=== PATIENT | female | born 1995 | race Caucasian/White ===

== ENCOUNTER 2016-10-24 22:00 | Inpatient (IN) | payer OTHER ==
[2016-10-24] MEDS ORDERED: RINGERS SOLUTION,LACTATED 1,000 ML IV PRN (22:27)
[2016-10-24] MEDS ORDERED: MISOPROSTOL 0.2 MG TABLET ONE (22:35)
[2016-10-24] MEDS ORDERED: LIDOCAINE 1% INJ-PF (10 MG/ML) 30 ML SDV ONE (22:36)
[2016-10-24] MEDS ORDERED: EPHEDRINE SULFATE INJ 50 MG/1 ML AMPULE ONE (22:36)
[2016-10-24] MEDS ORDERED: FENTANYL CITRATE INJ/PF 100 MCG/2 ML AMPUL ONE (22:36)
[2016-10-24] MEDS ORDERED: OXYTOCIN/NORMAL SALINE 20 UNIT/1,000 ML RTUINJ ONE (22:36)
[2016-10-24] MEDS ORDERED: BUPIVACAINE HCL 0.25 % INJ/PF (2.5 MG/1 ML) 30 ML VIAL ONE (22:37)
[2016-10-24] MEDS ORDERED: FENTANYL/BUPIVACAINE/NS/PF 0 MCG/0 ML RTUINJ EPI ONE (22:37)
[2016-10-24] MEDS ORDERED: PHENYLEPHRINE HCL INJ/PF 10 MG/1 ML SDV ONE (22:37)
[2016-10-24 22:41] LABS: ABSOLUTE BASOPHILS # (AUTO) 0.1 10^3/uL (0.0-0.2); ABSOLUTE LYMPHOCYTES (AUTO) 2.4 10^3/uL (0.5-4.7); ABSOLUTE MONOCYTES (AUTO) 0.9 10^3/uL (0.1-1.4); ABSOLUTE NEUT (AUTO) 11.5 10^3/uL (1.7-8.2); BASOPHILS % (AUTO) 0.6 % (0-2); EOSINOPHILS % (AUTO) 0.1 % (0-6); HEMATOCRIT 36.2 % (36.0-47.0); HEMOGLOBIN 12.5 g/dL (12.0-15.5); HGB HCT DIFFERENCE 1.3; LYMPHOCYTES % (AUTO) 16.4 % (13-45); MEAN CORPUSCULAR HEMOGLOBIN 31.1 pg (27.0-33.4); MEAN CORPUSCULAR HGB CONC 34.5 g/dL (32.0-36.0); MEAN CORPUSCULAR VOLUME 90 fl (80-97); MONOCYTES % (AUTO) 6.2 % (3-13); RED BLOOD COUNT 4.02 10^6/uL (3.72-5.28); RED CELL DISTRIBUTION WIDTH 12.9 % (11.5-14.0); SEGMENTED NEUTROPHILS % (AUTO) 76.7 % (42-78); WHITE BLOOD COUNT 14.9 10^3/uL (4.0-10.5)
[2016-10-24] MEDS ORDERED: ACETAMINOPHEN WITH CODEINE #3 TABLET PO PRN ×2 (23:19)
[2016-10-24] MEDS ORDERED: DIBUCAINE 1% OINTMENT 28 GM TP PRN (23:19)
[2016-10-24] MEDS ORDERED: BENZOCAINE/MENTHOL AEROSOL SPRAY 56 ML TOP PRN (23:19)
[2016-10-24] MEDS ORDERED: OXYTOCIN/NORMAL SALINE 1,000 ML IV PRN (23:19)
[2016-10-24] MEDS ORDERED: DIPH/PERTUSS(ACELL)/TETANUS VAC/PF 0.5 ML SYR (>=10YO) IM PRN (23:19)
[2016-10-24] MEDS ORDERED: ZOLPIDEM TARTRATE 5 MG TABLET PO PRN (23:19)
[2016-10-24] MEDS ORDERED: MEASLES,MUMPS&RUBELLA VACC/PF 0.5 ML VIAL SUBCUT PRN (23:19)
[2016-10-24] MEDS ORDERED: IBUPROFEN 800 MG TABLET ONE (23:34)
[2016-10-24 23:41] LABS: APPEARANCE,URINE CLOUDY; BILIRUBIN,URINE NEGATIVE (NEGATIVE); GLUCOSE, URINE NEGATIVE (NEGATIVE); KETONES,URINE 80 mg/dL (NEGATIVE); LEUKOCYTE ESTERASE,URINE SMALL (NEGATIVE); NITRITE,URINE NEGATIVE (NEGATIVE); PROTEIN,URINE NEGATIVE (NEGATIVE); URINE SPECIFIC GRAVITY 1.011; UROBILINOGEN,URINE NEGATIVE mg/dL (<2.0)
[2016-10-24] MEDS ORDERED: OXYTOCIN 10 UNIT/ML VIAL ONE (23:45)
--- NOTE | 2016-10-24 23:51 | Delivery Summary ---
Del Sum A-C Datetime Report Generated by CPN: 10/24/2016 23:50 ADMISSION DATA Chief Complaint: Uterine Contractions Indication for Induction: Not Applicable Admission Impression: Term, Intrauterine ; Active Labor Admit Provider Comments: 21yo at 40+5ega presents in active labor. GBS negative per chart. c/b Hypothyroidism on Synthroid 50mcg. GERD tx in with Zantac. Pelvis proven with . Anticipate as pt has rapidly changed her cervical dilation to 7-8cm. Will attempt to get pt epidural. DELIVERY PERSONNEL Delivery Doctor:: Mariposa Stringer MD Labor and Delivery Nurse:: Geraldine Pedroza RNship purser Nurse:: Prerna Day RN Nursery Nurse:: Karissa Matson RN Nursery Nurse:: Patricia Calix RN MATERNAL INFORMATION Delivery Anesthesia: Local Medications After Delivery: Pitocin Drip 20 Units/1000ml NSS; Other-Please Comment Meds After Delivery Comment: 1000mcg miso; pitocin with 40 units in 1000 NS Estimated Blood Loss (ml): 250 Maternal Complications: None Provider Comments: VFI delivered in JESSICA presentation with tight nuchal cord that needed surgical reduction. Shoulders and body delivered w/o difficulty. Placenta delivered spontaneously intact. Mild intermittent atony and crudee performed with small less than 1-2cm piece of membrane removed with good return to FF. Misoprostol 1000mcg given per rectum. Good hemostasis after repair. Mother and baby stable upon provider leaving the room. Weight 7#7oz, Apgars 8/9 LABOR SUMMARY EDC: 10/19/2016 00:00 No. Babies in Womb: 1 Labor Anesthesia: None LABOR INFORMATION Reason for Induction: Not Applicable Onset of Labor: 10/24/2016 19:30 Complete Dilatation: 10/24/2016 22:53 Group B Beta Strep: negative Steroids Given: None Reason Steroids Not Administered: Not Applicable MEMBRANES Membranes Rupture Method: Spontaneous Rupture of Membranes: 10/24/2016 22:55 Length of Rupture (hr): 0.05 Amniotic Fluid Color: Heavy Meconium Amniotic Fluid Amount: Moderate Amniotic Fluid Odor: Normal STAGES OF LABOR Stage 1 hr: 3 Stage 1 min: 23 Stage 2 hr: 0 Stage 2 min: 5 Stage 3 hr: 0 Stage 3 min: 5 Total Time in Labor hr: 3 Total Time in Labor min: 33 VAGINAL DELIVERY Episiotomy: None Laceration Extension: First Degree Laceration Type: Perineal Laceration Repair: Yes Laceration Repair Note: 1st degree ML laceration repaired in usual fashion with good hemostasis. 8ml of 1% lidocaine used for local anesthetic. Sponge Count Correct: Yes Sharps Count Correct: Yes BABY A INFORMATION Infant Delivery Date/Time: 10/24/2016 22:58 Method of Delivery: Vaginal Born in Route : No : N/A Forceps: N/A Vacuum Extraction: N/A Shoulder Dystocia : No PRESENTATION/POSITION BABY A Presentation: Cephalic Cephalic Presentation: Vertex Vertex Position: Left Occipital Anterior Breech Presentation: N/A PLACENTA INFORMATION BABY A Placenta Delivery Time : 10/24/2016 23:03 Placenta Method of Delivery: Spontaneous Placenta Status: Delivered SCORES BABY A Heart Rate 1 min: >100 bpm Resp Effort 1 min: Good Cry Reflex Irritability 1 min: Cough or Sneeze or Pulls Away Muscle Tone 1 min: Active Motion Color 1 min: Blue/Pale Resuscitation Effort 1 min: Tactile Stimulation SCORE 1 MIN: 8 Heart Rate 5 min: >100 bpm Resp Effort 5 min: Good Cry Reflex Irritability 5 min: Cough or Sneeze or Pulls Away Muscle Tone 5 min: Active Motion Color 5 min: Body Lowes, Extremities Blue SCORE 5 MIN: 9 INFORMATION BABY A Gestational Age at Delivery: 40.5 Gestational Status: Full Term- 39- 40.6 Weeks Infant Outcome : Liveborn Condition : Stable Sex: Female IDENTIFICATION BABY A Verification Date/Time: 10/24/2016 23:15 ID Band Number: [id number] Mother's Name Verified: Yes RN Verifying : R Shay, RNC Additional Verifying Personnel: D Sarita, US WEIGHT/LENGTH BABY A Infant Birthweight (gm): 3370 Weight (lb): 7 Weight (oz): 7 Infant Length (in): 19.75 Infant Length (cm): 50.17 CORD INFORMATION BABY A No. Cord Vessels: 3 Nuchal Cord : Around Neck x1, Tight Cord Blood Taken: Yes-For Storage (Mom's Blood type +) Suction: Mouth; Nose (Annotations: Data stored by WILY on behalf of user) ASSESSMENT BABY A Skin to Skin: No SIGNATURES Signature: with User ID: [email or web address]
[2016-10-25 00:07] LABS: URINE BARBITURATES SCREEN NEGATIVE; URINE METHADONE SCREEN NEGATIVE; URINE PHENCYCLIDINE SCREEN NEGATIVE
--- NOTE | 2016-10-25 01:53 | Admission Physical ---
Datetime Report Generated by CPN: 10/25/2016 01:52 CURRENT ADMISSION Chief Complaint: Uterine Contractions Indication for Induction: Not Applicable Admit Plan: Admit to Unit; Initiate Labor Protocol ALLERGIES Medication Allergies: No Medication Allergies: No Known Drug Allergies (10/24/2016) Latex: No Latex Allergies Food Allergies: none Environmental Allergies: none OBSTETRICAL HISTORY EDC: 10/19/2016 00:00 : 3 Para: 1 Term: 1 : 0 SAB: 1 IAB: 0 Livin Gestational Diabetes: No Rh Sensitization: No Incompetent Cervix: No SYL: No Infertility: No ART Treatment: No Uterine Anomaly: No IUGR: No Hx Previous C/S: No Macrosomia: No Hx Loss/Stillborn: No PIH: No Hx : No Placenta Previa/Abruption: No Depression/PP Depression: No PTL/PROM: No Post Hemorrhage: No Current Procedures: Ultrasound; NST Obstetrical History Comments: G1: 2013 G2: Female 2014 7 pounds 6 ounces G3: Current SEE RECORDS Alcohol: No Marijuana : No Cocaine: No Other Illicit Drugs: No Cigarettes: Former Smoker. [id number] MEDICAL HISTORY Diabetes: No Blood Transfusion: No Pulmonary Disease (Asthma, TB): No Breast Disease: No Hypertension: No Maintenance Assistant Surgery: No Heart Disease: No Hosp/Surgery: Yes Autoimmune Disorder: No Anesthetic Complications: No Kidney Disease: No Abnormal Pap Smear: No Neuro/Epilepsy: No Psychiatric Disorders: No Other Medical Diseases: No Hepatitis/Liver Disease: No Significant Family History: No Varicosities/Phlebitis: No Trauma/Violence : No Thyroid Dysfunction: Yes Medical History Comments: On synthroid hypothyroidism, childbirth INFECTIOUS HISTORY Gonorrhea: No Genital Herpes: No Chlamydia: No Tuberculosis: No Syphilis: No Hepatitis: No HIV/AIDS Exposure: No Rash or Viral Illness: No HPV: No PHYSICAL EXAM General: Normal HEENT: Normal Neurologic: Normal Thyroid: Normal Heart: Normal Lungs: Normal Breast: Deferred Back: Normal Abdomen: Normal Genitourinary Exam: Normal Extremities: Normal DTRs: Normal Pelvic Type: Adequate Physical Exam Comments: Exam per RN normal Vital Signs: Reviewed; Within Normal Limits VAGINAL EXAM Dilatation: 5 Effacement: 80 Station: -1 FETUS A EGA: 40.5 Monitoring: External US FHR- Baseline: 130 Variability: Moderate 6-25bpm Accelerations: 15X15 Decelerations: None Estimated Weight (gm): 8 Presentation: Vertex Admit Comment: 21yo at 40+5ega presents in active labor. GBS negative per chart. c/b Hypothyroidism on Synthroid 50mcg. GERD tx in with Zantac. Pelvis proven with . Anticipate as pt has rapidly changed her cervical dilation to 7-8cm. Will attempt to get pt epidural. PLANS FOR LABOR AND DELIVERY Labor and Delivery: None Pain Management: Epidural Feeding Preference: Breast Benefit of Breast Feed Discussed: Yes Circumcision: N/A INFORMED CONSENT Informed Consent Obtained: Vaginal Delivery; Risks, Benefits and Alternatives Discussed Signature: with User ID: [email or web address]
--- NOTE | 2016-10-25 04:47 | L&D Flow Sheet ---
LD Flowsheet Datetime Report Generated by CPN: 10/25/2016 04:45 Datetime: 10/25/2016 00:56 Vital Signs Stage of : Recovery (Geraldine Pedroza, RN) Respirations: 18 (Geraldine Pedroza, RN) Pain Pain Scale: 1 (Geraldine Pedroza, RN) Pain Presence: Constant (Geraldine Pedroza, RN) Pain Type: Ache (Geraldine Pedroza, RN) Pain Location: Perineum (Geraldine Pedroza, RN) Pain Goal: 1 (Geraldine Pedroza, RN) Pain Assessment Comments: (Geraldine Pedroza, RN) Datetime: 10/25/2016 00:45 Vital Signs Stage of : Recovery (Geraldine Pedroza, RN) Datetime: 10/25/2016 00:25 Vital Signs Stage of : Recovery (Geraldine Pedroza, RN) Datetime: 10/25/2016 00:11 NBP Sys/Rosalee/Mean (mmHg): 127 (QS system process) : 72 (QS system process) : 94 (QS system process) Pulse: 54 (QS system process) Datetime: 10/25/2016 00:10 Vital Signs Stage of : Recovery (Geraldine Pedroza, RN) Respirations: 18 (Geraldine Pedroza, RN) Temperature (F): 97.9 (Geraldine Pedroza, RN) Temperature (C): 36.6 (QS system process) Pain Pain Scale: 1 (Geraldine Pedroza, RN) Pain Presence: Constant (Geraldine Pedroza, RN) Pain Type: Ache (Geraldine Pedroza, RN) Pain Location: Perineum (Geraldine Pedroza, RN) Pain Goal: 1 (Geraldine Pedroza, RN) Pain Relief Measures: Comfort Measures (Geraldine Pedroza, RN) Datetime: 10/24/2016 23:57 NBP Sys/Rosalee/Mean (mmHg): 120 (QS system process) : 68 (QS system process) : 88 (QS system process) Pulse: 68 (QS system process) Datetime: 10/24/2016 23:55 Vital Signs Stage of : Recovery (Geraldine Pedroza, RN) Respirations: 18 (Geraldine Pedroza, RN) Datetime: 10/24/2016 23:40 Vital Signs Stage of : Recovery (Geralidne Pedroza, RN) Pain Pain Scale: 1 (Geraldine Pedroza, RN) Pain Presence: Constant (Geraldine Pedroza, RN) Pain Type: Ache (Geraldine Pedroza, RN) Pain Location: Perineum (Geraldine Pedroza, RN) Datetime: 10/24/2016 23:25 Vital Signs Stage of : Recovery (Geraldine Pedroza, RN) Respirations: 18 (Geraldine Pedroza, RN) Pain Pain Scale: 2 (Geraldine Pedroza, RN) Pain Presence: Constant (Geraldine Pedroza, RN) Pain Type: Pressure; Ache (Geraldine Pedroza, RN) Pain Location: Perineum (Geraldine Pedroza, RN) Pain Goal: 1 (Geraldine Pedroza, RN) Pain Relief Measures: Comfort Measures (Geraldine Pedroza, RN) Datetime: 10/24/2016 23:23 NBP Sys/Rosalee/Mean (mmHg): 126 (QS system process) : 70 (QS system process) : 91 (QS system process) Pulse: 80 (QS system process) Datetime: 10/24/2016 23:12 Vital Signs Stage of : Recovery (Geraldine Pedroza, RN) Datetime: 10/24/2016 23:10 Vital Signs Stage of : Recovery (Geraldine Pedroza, RN) Datetime: 10/24/2016 23:03 Stage 2 Stage 2 Comments: delivered by Dr Stringer (Geraldine Pedroza, RN) Datetime: 10/24/2016 22:58 Stage 2 Stage 2 Comments: delivered by Dr Stringer (Geraldine Pedroza, RN) Datetime: 10/24/2016 22:57 Vital Signs Stage of : Labor (Geraldine Pedroza, RN) Respirations: 18 (Geraldine Pedroza, RN) Uterine Activity Monitor Mode: External; Palpation (Geraldine Pedroza, RN) Frequency (min): 2-3 (Geraldine Pedroza, RN) Quality: Moderate to Strong (Geraldine Pedroza, RN) Duration (sec): 60-110 (Geraldine Pedroza, RN) Pattern: Normal: <= 5 Contractions in 10 Minutes (Geraldine Pedroza, RN) Resting Tone (Palpate): Relaxed (Geraldine Pedroza, RN) Assessment A Monitor Mode: External US (Geraldine Pedroza, RN) Monitor Interventions for FHR: Ultrasound Adjusted (Geraldine Pedroza, RN) FHR Baseline Rate : 130 (Geraldine Pedroza, RN) FHR Baseline Changes: No Baseline Change (Geraldine Pedroza, RN) Variability: Moderate 6-25 bpm (Geraldine Pedroza, RN) Accelerations: 15X15 (Geraldine Pedroza, RN) Decelerations: Variable (Geraldine Pedroza, RN) Pain Pain Scale: 5 (Geraldine Pedroza, RN) Pain Presence: Intermittent (Geraldine Pedroza, RN) Pain Type: Contraction (Geraldine Pedroza, RN) Pain Location: Abdomen; Perineum (Geraldine Pedroza, RN) Pain Goal: 1 (Geraldine Pedroza, RN) Pain Relief Measures: Comfort Measures (Geraldine Pedroza, RN) Pain Coping: Talking Through Contractions (Geraldine Pedroza, RN) Comfort Measures: Breathing/Relaxation; Family Support (Geraldine Pedroza, RN) Communication Communication: RN at Bedside; RN Reviewed Strip (Geraldine Pedroza, RN) LaborFlag: Labor (QS system process) Datetime: 10/24/2016 22:56 Communication Comments: Nursery called for delivery (Nhi Vitrano, RN) Datetime: 10/24/2016 22:54 Vaginal Exam Dilatation (cm): 10.0 (Prerna Shay, RN) Effacement (%): 100 (Prerna Shay, RN) Station: 2 (Prerna Shay, RN) Exam by: B Pedroza, RN (Prerna Shay, RN) Communication Communication: Provider at Bedside (Prerna Shay, RN) Communication Comments: Dr Hoffmanat bedside for delivery (Prerna Shay, RN) Datetime: 10/24/2016 22:50 Vaginal Exam Dilatation (cm): 9.0 (Prerna Shay, RN) Station: -1 (Prerna Shay, RN) Exam by: B Pedroza, RN (Prerna Shay, RN) Datetime: 10/24/2016 22:48 Pulse: 143 (QS system process) SpO2 (%): 81 (QS system process) LaborFlag: Labor (QS system process) Datetime: 10/24/2016 22:42 Procedures: Consents Signed (Crystal Teresa, RN) Datetime: 10/24/2016 22:39 Vaginal Exam Dilatation (cm): 7.5 (Geraldine Pedroza, RN) Effacement (%): 100 (Geraldine Pedroza, RN) Station: -1 (Geraldine Pedroza, RN) Exam by: Laura Pedroza, RN (Geraldine Pedroza, RN) Vaginal Bleeding: None (Geraldine Pedroza, RN) Cervix, Consistency: Soft (Geraldine Pedroza, RN) Cervix, Position: Midposition (Geraldine Pedroza, RN) Datetime: 10/24/2016 22:31 Patient Care IV/Blood Work: Labs Drawn (Geraldine Pedroza, RN) Datetime: 10/24/2016 22:30 Vital Signs Stage of : Labor (Geraldine Pedroza, RN) Uterine Activity Monitor Mode: External; Palpation (Geraldine Pedroza, RN) Frequency (min): 1.5-2 (Geraldine Pedroza, RN) Frequency (min): per patient every 1-2 minutes (Geraldine Pedroza, RN) Quality: Moderate to Strong (Geraldine Pedroza, RN) Duration (sec): 60-80 (Geraldine Pedroza, RN) Pattern: Normal: <= 5 Contractions in 10 Minutes (Geraldine Pedroza, RN) Resting Tone (Palpate): Relaxed (Geraldine Pedroza, RN) Assessment A Monitor Mode: External US (Geraldine Pedroza, RN) FHR Baseline Rate : 130 (Geraldine Pedroza, RN) FHR Baseline Changes: No Baseline Change (Geraldine Pedroza, RN) Variability: Moderate 6-25 bpm (Geraldine Pedroza, RN) Accelerations: 15X15 (Geraldine Pedroza, RN) Decelerations: None (Geraldine Pedroza, RN) Pain Pain Scale: 5 (Geraldine Pedroza, RN) Pain Presence: Intermittent (Geraldine Pedroza, RN) Pain Type: Contraction (Geraldine Pedroza, RN) Pain Location: Abdomen; Back (Geraldine Pedroza, RN) Pain Location: Abdomen; Perineum (Geraldine Pedroza, RN) Pain Goal: 1 (Geraldine Pedroza, RN) Pain Relief Measures: Comfort Measures (Geraldine Pedroza, RN) Pain Coping: Requesting Pain Medication or Epidural (Geraldine Pedroza, RN) Pain Coping: Talking Through Contractions; Breathing Through Contractions (Geraldine Pedroza, RN) Vaginal Bleeding: None (Geraldine Pedroza, RN) Maternal Assessment Level of Consciousness: Fully Conscious (Geraldine Pedroza, RN) DTR's/Clonus: DTRs 2+; No Clonus (Geraldine Pedroza, RN) Headache: Denies (Geraldine Pedroza, RN) Breath Sounds, Left: Clear and Equal (Geraldine Pedroza, RN) Breath Sounds, Right: Clear and Equal (Geraldine Pedroza, RN) Nausea/Vomiting: Denies (Geraldine Pedroza, RN) RUQ Epigastric Pain: Denies (Geraldine Pedroza, RN) Comfort Measures: Breathing/Relaxation; Family Support (Geraldine Pedroza, RN) Communication Communication: RN at Bedside; RN Reviewed Strip (Geraldine Pedroza, RN) LaborFlag: Labor (QS system process) Datetime: 10/24/2016:28 Patient Care IV/Blood Work: IV Started; IV Bolus Started (Geraldine Pedroza, RN) Patient Care Comments: 18 gauge placed in L wrist on first attempt by O Danny, RN (Geraldine Pedroza, RN) Datetime: 10/24/2016 22:19 Quality: Moderate to Strong (Geraldine Pedroza, RN) Vaginal Exam Dilatation (cm): 5.0 (Geraldine Pedroza, RN) Effacement (%): 80 (Geraldine Pedroza, RN) Station: -1 (Geraldine Pedroza RN) Exam by: Laura Pedroza RN (Geraldine Pedroza RN) Vaginal Bleeding: None (Geraldine Pedroza RN) Cervix, Consistency: Soft (Geraldine Pedroza RN) Cervix, Position: Midposition (Geraldine Pedroza RN) Datetime: 10/24/2016 22:06 Membranes Ruptured Date/Time: 10/24/2016 22:55 (Prerna Day RN) Membranes Rupture Method: Artificial (Geraldine Pedroza RN) Amniotic Fluid Color: Heavy Meconium (Prerna Day RN) Amniotic Fluid Amount: Moderate (Prerna Day RN) Amniotic Fluid Odor: Normal (Preran Day RN)
--- NOTE | 2016-10-25 04:47 | L&D Discharge Summary ---
OB Discharge Summary Datetime Report Generated by CPN: 10/25/2016 04:45 DISCHARGE DIAGNOSIS Gestation: 40.5 Number of Babies in Womb: 1 Parity: 1
--- NOTE | 2016-10-25 04:47 | L&D Current Admission ---
Current Admit Datetime Report Generated by CPN: 10/25/2016 04:45 ADMISSION INFORMATION Current Admit Date/Time: 10/24/2016 22:44 (10/24/2016 22:44:Geraldine Pedroza RN) Reason for Admission: Onset of Labor (10/24/2016 22:44:Geraldine Pedroza RN) Chief Complaint: Contractions (10/24/2016 22:30:Geraldine Pedroza RN) EGA per Dates: 40.5 (10/24/2016 22:44:QS system process) Method of Arrival: Wheelchair (10/24/2016 22:44:Geraldine Pedroza RN) Reason for Induction: Not Applicable (10/24/2016 22:44:Geraldine Pedroza RN) Records Available: Yes (10/24/2016 22:44:Geraldine Pedroza RN) General Admission Information: Reviewed (10/24/2016 22:44:Geraldine Pedroza RN) BELONGINGS/ADVANCED DIRECTIVES Comments Regarding Disposition: see belongings consent form (10/24/2016 22:44:Geraldine Pedroza RN) Advance Direct for Healthcare: No, and Wants No Information (10/24/2016 22:44:Geraldine Pedroza RN) Durable Power of Cap Sizer: No (10/24/2016 22:44:Geraldine Pedroza RN) Living Will: No (10/24/2016 22:44:Geraldine Pedroza RN) Organ Donor: Yes (10/24/2016 22:44:Geraldine Pedroza RN) Pt Rights Information Given: Yes (10/24/2016 22:44:Geraldine Pedroza RN) Pt Understands Pt Rights: Yes (10/24/2016 22:44:Geraldine Pedroza RN) LEARNING ASSESSMENT Knowledge Level: Understands L_D Process; Understands Care Activities; Understands Diagnosis (10/24/2016 22:44:Geraldine Pedroza RN) Barriers to Learning: None (10/24/2016 22:44:Geraldine Pedroza RN) Learning Readiness: Motivated (10/24/2016 22:44:Geraldine Pedroza RN) Learns Best By: 1 to 1 Instruction; Reading; Videos; Demonstration (10/24/2016 22:44:Geraldine Pedroza RN) Learning Needs: Labor and Delivery Process; Pain Management; Symptoms to Report; Treatment Plan; Medication; Diagnosis; Nutrition; Equipment; Care; Community Resources (10/24/2016 22:44:Geraldine Pedroza RN) DOMESTIC VIOLANCE SCREENING Dom Viol Threatened/Hurt: No (10/24/2016 22:44:Geraldine Pedroza RN) Hx of Abuse/Neglect past 2yrs: No (10/24/2016 22:44:Geraldine Pedroza RN) Feel Unsafe Going Home: No (10/24/2016 22:44:Geraldine Pedroza RN) Addt'l Observ Indicating Abuse: No (10/24/2016 22:44:Geraldine Pedroza RN) Reason Unable to Complete Screen: N/A, Screen Completed (10/24/2016 22:44:Geraldine Pedroza RN) Considered Personal Harm/Suicide: No (10/24/2016 22:44:Geraldine Pedroza RN) NUTRITIONAL/FUNCTIONAL SCREENING Problem with Appetite >5 Days: No (10/24/2016 22:44:Geraldine Pedroza RN) Chew/Swallow Difficulties: No (10/24/2016 22:44:Geraldine Pedroza RN) Inappropriate Wt Gain/Loss: No (10/24/2016 22:44:Geraldine Pedroza RN) Presence Skin Breakdown/Ulcer: No (10/24/2016 22:44:Geraldine Pedroza RN) Special Diet: No (10/24/2016 22:44:Geraldine Pedroza RN) Pt Requests Demolition Hammer Operator Visit: No (10/24/2016 22:44:Geraldine Pedroza RN) Hx of Any of the Following?: N/A (10/24/2016 22:44:Geraldien Pedroza RN) New Diagnosis of: N/A (10/24/2016 22:44:Geraldine Pedroza RN) Requires Assist w/Ambulation: No (10/24/2016 22:44:Geraldine Pedroza RN) Uses Assist Device to Ambulate: No (10/24/2016 22:44:Geraldine Pedroza RN) Pt Requires Help w/ADL's: No (10/24/2016 22:44:Geraldine Pedroza RN)
--- NOTE | 2016-10-25 04:47 | L&D Admission Assessment ---
LD ADM ASMT Datetime Report Generated by CPN: 10/25/2016 04:45 PATIENT ASSESSMENT Assessment Type: Admission Assessment (10/24/2016 22:30:Geraldine Pedroza, RN) WEIGHT Weight (lb): 154 (10/25/2016 01:51:QS system process) Weight (lb): 154 (10/24/2016 22:16:QS system process) Weight (kg): 70.0 (10/25/2016 01:51:QS system process) Weight (kg): 70.0 (10/24/2016 22:16:QS system process) BMI: 32.2 (10/25/2016 01:51:QS system process) ONSET OF LABOR Onset of Labor: 10/24/2016 19:30 (10/24/2016 22:06:Prerna Day RN) PAIN Pain Scale: 1 (10/25/2016 00:56:Geraldine Pedroza RN) Pain Scale: 1 (10/25/2016 00:10:Geraldine Pedroza RN) Pain Scale: 1 (10/24/2016 23:40:Geraldine Pedroza RN) Pain Scale: 2 (10/24/2016 23:25:Geraldine Pedroza RN) Pain Scale: 5 (10/24/2016 22:57:Geraldine Pedroza RN) Pain Scale: 5 (10/24/2016 22:30:Geraldine Pedroza RN) Pain Presence: Constant (10/25/2016 00:56:Geraldine Pedroza RN) Pain Presence: Constant (10/25/2016 00:10:Geraldine Pedroza RN) Pain Presence: Constant (10/24/2016 23:40:Geraldine Pedroza RN) Pain Presence: Constant (10/24/2016 23:25:Geraldine Pedroza RN) Pain Presence: Intermittent (10/24/2016 22:57:Geraldine Pedroza RN) Pain Presence: Intermittent (10/24/2016 22:30:Geraldine Pedroza RN) Pain Type: Ache (10/25/2016 00:56:Geraldine Pedroza RN) Pain Type: Ache (10/25/2016 00:10:Geraldine Pedroza RN) Pain Type: Ache (10/24/2016 23:40:Geraldine Pedroza RN) Pain Type: Pressure; Ache (10/24/2016 23:25:Geraldine Pedroza RN) Pain Type: Contraction (10/24/2016 22:57:Geraldine Pedroza RN) Pain Type: Contraction (10/24/2016 22:30:Geraldine Pedroza RN) Pain Location: Perineum (10/25/2016 00:56:Geraldine Pedroza RN) Pain Location: Perineum (10/25/2016 00:10:Geraldine Pedroza RN) Pain Location: Perineum (10/24/2016 23:40:Geraldine Pedroza RN) Pain Location: Perineum (10/24/2016 23:25:Geraldine Pedroza RN) Pain Location: Abdomen; Perineum (10/24/2016 22:57:Geraldine Pedroza RN) Pain Location: Abdomen; Back (10/24/2016 22:30:Geraldine Pedroza RN) Pain Location: Abdomen; Perineum (10/24/2016 22:30:Geraldine Pedroza RN) Pain Goal: 1 (10/25/2016 00:56:Geraldine Pedroza RN) Pain Goal: 1 (10/25/2016 00:10:Geraldine Pedroza RN) Pain Goal: 1 (10/24/2016 23:25:Geraldine Pedroza RN) Pain Goal: 1 (10/24/2016 22:57:Geraldine Pedroza RN) Pain Goal: 1 (10/24/2016 22:30:Geraldine Pedroza, RN) Pain Related to Contraction: Yes (10/24/2016 22:30:Geraldine Perdoza, RN) Pain Comments: (10/25/2016 00:56:Geraldine Pedroza, RN) CONTRACTIONS Frequency (min): 2-3 (10/24/2016 22:57:Geraldine Pedroza, RN) Frequency (min): 1.5-2 (10/24/2016 22:30:Geraldine Pedroza, RN) Frequency (min): per patient every 1-2 minutes (10/24/2016 22:30:Geraldine Pedroza, RN) Duration (sec): 60-110 (10/24/2016 22:57:Geraldine Pedroza, RN) Duration (sec): 60-80 (10/24/2016 22:30:Geraldine Pedroza, RN) Quality: Moderate to Strong (10/24/2016 22:57:Geraldine Pedroza, RN) Quality: Moderate to Strong (10/24/2016 22:30:Geraldine Pedroza, RN) Quality: Moderate to Strong (10/24/2016 22:19:Geraldine Pedroza, RN) Pattern: Normal: <= 5 Contractions in 10 Minutes (10/24/2016 22:57:Geraldine Pedroza, RN) Pattern: Normal: <= 5 Contractions in 10 Minutes (10/24/2016 22:30:Geraldine Pedroza, RN) Resting Tone [place]: Relaxed (10/24/2016 22:57:Geraldine Pedroza, RN) Resting Tone [place]: Relaxed (10/24/2016 22:30:Geraldine Pedroza, RN) VAGINAL EXAM Dilatation (cm): 10.0 (10/24/2016 22:54:Prerna Day RN) Dilatation (cm): 9.0 (10/24/2016 22:50:Prerna Day RN) Dilatation (cm): 7.5 (10/24/2016 22:39:Geraldine Pedroza RN) Dilatation (cm): 5.0 (10/24/2016 22:19:Geraldine Pedroza RN) Effacement (%): 100 (10/24/2016 22:54:Prerna Day RN) Effacement (%): 100 (10/24/2016 22:39:Geraldine Pedroza RN) Effacement (%): 80 (10/24/2016 22:19:Geraldine Pedroza RN) Station: 2 (10/24/2016 22:54:Prerna Day RN) Station: -1 (10/24/2016 22:50:Prerna Day RN) Station: -1 (10/24/2016 22:39:Geraldine Pedroza RN) Station: -1 (10/24/2016 22:19:Geraldine Pedroza RN) Membranes Rupture D/ (10/24/2016 22:06:Prerna Day RN) ROM Method: Artificial (10/24/2016 22:06:Geraldine Pedroza RN) Amniotic Fluid Color: Heavy Meconium (10/24/2016 22:06:Prerna Day RN) Amniotic Fluid Amount: Moderate (10/24/2016 22:06:Prerna Day RN) Amniotic Fluid Odor: Normal (10/24/2016 22:06:Prerna Shay, RN) NEURO Level of Consciousness: Fully Conscious (10/24/2016 22:30:Geraldine Pedroza, RN) DTR's/Clonus: DTRs 2+; No Clonus (10/24/2016 22:30:Geraldine Pedroza, RN) Headache: Denies (10/24/2016 22:30:Geraldine Pedroza, RN) Dizziness: No (10/24/2016 22:30:Geraldine Pedroza, RN) Blurred Vision: No (10/24/2016 22:30:Geraldine Pedroza, RN) Extremity Numbness/Tingling : None (10/24/2016 22:30:Geraldine Pedroza, RN) Extremity Movement: Full Range of Motion (10/24/2016 22:30:Geraldine Pedroza, RN) CARDIOVASCULAR Heart Rhythm: Regular (10/24/2016 22:30:Geraldine Pedroza, RN) Nailbeds: [place] (10/24/2016 22:30:Geraldine Pedroza, RN) Capillary Refill: Less than 3 Seconds (10/24/2016 22:30:Geraldine Pedroza, RN) Lower Extremities Edema: None (10/24/2016 22:30:Geraldine Pedroza, RN) Lower Extremities Edema Degree: None (10/24/2016 22:30:Geraldine Pedroza, RN) Upper Extremities Edema: None (10/24/2016 22:30:Geraldine Pedroza, RN) Upper Extremities Edema Degree: None (10/24/2016 22:30:Geraldine Pedroza, RN) Facial Edema: None (10/24/2016 22:30:Geraldine Pedroza, RN) Juana's Sign Left Leg: Negative (10/24/2016 22:30:Geraldine Pedroza, RN) Juana's Sign Right Leg: Negative (10/24/2016 22:30:Geraldine Pedroza, RN) DVT RISK ASSESSMENT DVT Risk Age: Age less than 41 years (10/24/2016 22:30:Geraldine Pedroza, RN) DVT Risk BMI: BMI<31 (10/24/2016 22:30:Geraldine Pedroza, RN) DVT Risk Other: Women Only- or (<1 month) (10/24/2016 22:30:Geraldine Pedroza, RN) RESPIRATORY Respiratory Effort: Unlabored; Regular Rhythm; Equal Expansion (10/24/2016 22:30:Geraldine Pedroza, RN) Breath Sounds, Left: Clear and Equal (10/24/2016 22:30:Geraldine Pedroza, RN) Breath Sounds, Right: Clear and Equal (10/24/2016 22:30:Geraldine Pedroza, RN) Cough Productivity: None (10/24/2016 22:30:Geraldine Pedroza, RN) GASTROINTESTINAL Nausea/Vomiting: Denies (10/24/2016 22:30:Geraldine Pedroza, RN) Bowel Sounds: Normoactive; All Quadrants (10/24/2016 22:30:Geraldine Pedroza, RN) RUQ Epigastric Pain: Denies (10/24/2016 22:30:Geraldine Pedroza, RN) Bowel Patterns: Soft, Formed Stool (10/24/2016 22:30:Geraldine Pedroza, RN) Hemorrhoids: None (10/24/2016 22:30:Geraldine Pedroza, RN) Diet Type: Regular diet (10/24/2016 22:30:Geraldine Pedroza, RN) Last Meal: 10/24/2016 16:00 (10/24/2016 22:30:Geraldine Pedroza, RN) GENITOURINARY Bladder: Nondistended (10/24/2016 22:30:Geraldine Pedroza, RN) Frequency of Urination: No (10/24/2016 22:30:Geraldine Pedroza, RN) Urination Burning: No (10/24/2016 22:30:Geraldine Pedroza, RN) CVA Tenderness: No (10/24/2016 22:30:Geraldine Pedroza, RN) Vaginal Bleeding: None (10/24/2016 22:30:Geraldine Pedroza, RN) Vaginal Discharge Amount: None (10/24/2016 22:30:Geraldine Pedroza, RN) Vaginal Discharge Color: N/A (10/24/2016 22:30:Geraldine Pedroza, RN) INTEGUMENTARY Skin Color: Normal for Race (10/24/2016 22:30:Geraldine Pedroza, RN) Skin Temperature: Warm (10/24/2016 22:30:Geraldine Pedroza, RN) Skin Moisture: Dry (10/24/2016 22:30:Geraldine Pedroza, RN) Surgical Scars: none (10/24/2016 22:30:Geraldine Pedroza, RN) Body Piercings/Tattoos: piercings- none (10/24/2016 22:30:Geraldine Pedroza, RN) LUI SKIN ASSESSMENT Lui Scale Sensory Perception: No Impairment- Responds to verbal commands. Has no sensory deficit which would limit ability to feel or voice pain or discomfort (10/24/2016 22:30:Geraldine Pedroza RN) Lui Scale Moisture: Rarely Moist- Skin is usually dry. Linen only requires changing at routine intervals (10/24/2016 22:30:Geraldine Pedroza RN) Lui Scale Activity: Walks Frequently- Walks outside the room at least twice a day and inside room at least every 2 hours during the day. (10/24/2016 22:30:Geraldine Pedroza RN) Lui Scale Mobility: No Limitations- Makes major and frequent changes in position without assistance (10/24/2016 22:30:Geraldine Pedroza RN) Lui Scale Nutrition: Excellent- Eats most of every meal. Never refuses a meal. Usually eats a total of 4 or more servings of meat and dairy products. Occasionally eats between meals. Does not require supplementation (10/24/2016 22:30:Geraldine Pedroza RN) Lui Scale Friction and Shear: No Apparent Problem- Moves in bed and in chair independently and has sufficient muscle strength to lift up completely during move. Maintains good position in bed or chair at all times (10/24/2016 22:30:Geraldine Pedroza RN) Lui Scale Total: 23 (10/24/2016 22:30:QS system process) Lui Scale Risk: No Risk of Pressure Ulcer Noted at this Time (10/24/2016 22:30:QS system process) SUPPORT Family Support: Significant Other supportive, at bedside frequently (10/24/2016 22:30:Geraldine Pedroza, RN) Emotional State: Calm/Relaxed (10/24/2016 22:30:Geraldine Pedroza, RN) SAFETY Call Bro Within Reach: No (10/24/2016 22:30:Geraldine Pedroza, RN) Side Rails Up: No (10/24/2016 22:30:Geraldine Pedroza, RN) Bed Wheels Locked: No (10/24/2016 22:30:Geraldine Pedroza, RN) Arm Bands Present: No (10/24/2016 22:30:Geraldine Pedroza, RN) Isolation: [place] (10/24/2016 22:30:Geraldine Pedroza, RN) FALL SCREEN Fall Risk History of Falling: (0) No (10/24/2016 22:30:Geraldine Pedroza RN) Fall Risk Secondary Diagnosis: (0) No (10/24/2016 22:30:Geraldine Pedroza RN) Fall Risk Ambulatory Aid: (0) None/Bedrest/Wheelchair/Nurse Assist (10/24/2016 22:30:Geraldine Pedroza RN) Fall Risk IV Therapy: (20) Yes (10/24/2016 22:30:Geraldine Pedroza RN) Fall Risk Gait: (0) Normal/Bedrest/Immobile (10/24/2016 22:30:Geraldine Pedroza RN) Fall Risk Mental Status: (0) Oriented to Own Ability (10/24/2016 22:30:Geraldine Pedroza RN) Fall Risk Score: 20 (10/24/2016 22:30:QS system process) Fall Risk Score Definition: No Risk: No action required (10/24/2016 22:30:QS system process) RECENT TRAVEL/INFECTIOUS DISEASE Recent Exp Communicable Disease: No (10/24/2016 22:30:Geraldine Pedroza RN) Cough or Fever: No (10/24/2016 22:30:Geraldine Pedroza RN) Foreign Travel Past 10 Days: No (10/24/2016 22:30:Geraldine Pedroza RN) Open Wounds or Sores: No (10/24/2016 22:30:Geraldine Pedroza RN) Prior Antibiotic Resistance Tx: No (10/24/2016 22:30:Geraldine Pedroza, RN) Cultures Obtained: Not Applicable (10/24/2016 22:30:Geraldine Pedroza, RN) Isolation Initiated: No (10/24/2016 22:30:Geraldine Pedroza, RN) Pt/Family Education: Handwashing Hygiene (10/24/2016 22:30:Geraldine Pedroza, RN) BABY A FHR Baseline Rate (bpm) Baby A: 130 (10/24/2016 22:57:Geraldine Pedroza, RN) FHR Baseline Rate (bpm) Baby A: 130 (10/24/2016 22:30:Geraldine Pedroza, RN) Variability Baby A: Moderate 6-25 bpm (10/24/2016 22:57:Geraldine Pedroza, RN) Variability Baby A: Moderate 6-25 bpm (10/24/2016 22:30:Geraldine Pedroza, RN) Accelerations Baby A: 15X15 (10/24/2016 22:57:Geraldine Pedroza, RN) Accelerations Baby A: 15X15 (10/24/2016 22:30:Geraldine Pedroza, RN) Decelerations Baby A: Variable (10/24/2016 22:57:Geraldine Pedroza, RN) Decelerations Baby A: None (10/24/2016 22:30:Geraldine Pedroza, RN) ADDITIONAL COMMENTS Assessment Flag: Admission Assessment (10/24/2016 22:30:QS system process)
--- NOTE | 2016-10-25 04:47 | L&D General Admission ---
General Admit Datetime Report Generated by CPN: 10/25/2016 04:45 INFORMATION Patient Age: 21 (10/24/2016 22:00:QS system process) EDC: 10/19/2016 00:00 (10/24/2016 22:06:Prerna Day RN) : 3 (10/24/2016 22:06:Prerna Day RN) Para: 1 (10/24/2016 22:06:Prerna Day RN) Term: 1 (10/24/2016 22:06:Prerna Day RN) : 0 (10/24/2016 22:06:Prerna Day RN) Spontaneous Abortions: 1 (10/24/2016 22:06:Prerna Day RN) Induced Abortions: 0 (10/24/2016 22:06:Prerna Day RN) [place] (10/24/2016 22:06:Prerna Day RN) Baby, Number in Womb: 1 (10/24/2016 22:06:Prerna Day RN) CARE Primary Independent Film Maker: [facility] (10/24/2016 22:06:Geraldine Pedroza RN) Adequate Care: Yes (10/24/2016 22:06:Geraldine Pedroza RN) Height (in): 58 (10/25/2016 01:51:QS system process) Height (in): 58 (10/24/2016 22:16:QS system process) ALLERGIES Medication Allergy: No (10/24/2016 22:06:Geraldine Pedroza RN) Medication Allergies: No Known Drug Allergies (10/24/2016) (10/24/2016 22:12:QS system process) Medication Allergies: No Known Drug Allergies (08/09/2015) (10/24/2016 22:00:QS system process) Latex Allergy: No Latex Allergies (10/24/2016 22:06:Geraldine Pedroza RN) Food Allergies: none (10/24/2016 22:06:Geraldine Pedroza RN) Environmental Allergies: none (10/24/2016 22:06:Geraldine Pedroza RN) COMMUNICATION Primary Language: Pakistani (10/24/2016 22:06:Geraldinegopi Pedroza RN) Medical Tx Preferred Language: Pakistani (10/24/2016 22:06:Geraldine Pedroza RN) DEMOGRAPHICS Address: [address] [place] [id number] (10/24/2016 22:00:QS system process) Zipcode: [address] (10/24/2016 22:00:QS system process) Home (10/24/2016 22:00:QS system process) N: [phone] (10/24/2016 22:00:QS system process) Next of Kin Name: SANDY SEGURA (10/24/2016 22:00:QS system process) Next of Kin (10/24/2016 22:00:QS system process) Next of Kin Relationship: FA (10/24/2016 22:00:QS system process) Date of : 1995 (10/24/2016 22:00:QS system process) Marital Status: (10/24/2016 22:00:QS system process) Sex: Female (10/24/2016 22:00:QS system process) Race: (10/24/2016 22:00:QS system process) Ethnicity: Non- or (10/24/2016 22:00:QS system process) Mormonism: None (10/24/2016 22:00:QS system process) DRUG AND ALCOHOL USE Alcohol: No (10/24/2016 22:06:Geraldine Pedroza RN) Cigarettes: Former Smoker. [id number] (10/24/2016 22:06:Geraldine Pedroza RN) Marijuana: No (10/24/2016 22:06:Geraldine Pedroza RN) Cocaine: No (10/24/2016 22:06:Geraldine Pedroza RN) Other Illicit Drugs: No (10/24/2016 22:06:Geraldine Pedroza RN) VACCINE HISTORY Influenza Vaccine: Yes (10/24/2016 22:06:Geraldine Pedroza RN) Pneumococcal Vaccine: No (10/24/2016 22:06:Geraldine Pedroza RN) Tetanus Vaccine: Yes (10/24/2016 22:06:Geraldine Pedroza RN) Tdap Vaccine: Yes (10/24/2016 22:06:Geraldine Pedroza RN) Hepatitis B Vaccine: Yes (10/24/2016 22:06:Geraldine Pedroza RN) Radio Disc Jockey: [facility] (10/24/2016 22:06:Geraldine Pedroza RN) Feeding Preference: Breast (10/24/2016 22:06:Geraldine Pedroza RN) Benefit of Breast Feed Discussed: Yes (10/24/2016 22:06:Geraldine Pedroza RN) Circumcision: N/A (10/24/2016 22:06:Geraldine Pedroza RN) Classes Attended: No (10/24/2016 22:06:Geraldine Pedroza RN) Tubal Ligation: No (10/24/2016 22:06:Geraldine Pedroza RN) Tubal Authorization Signed: N/A (10/24/2016 22:06:Geraldine Pedroza RN) Consent: N/A (10/24/2016 22:06:Geraldine Pedroza RN) Consent Signed: N/A (10/24/2016 22:06:Geraldine Pedroza RN) Pain Management Plans: Epidural (10/24/2016 22:06:Geraldine Pedroza RN) Plans for Labor and Delivery: None (10/24/2016 22:06:Geraldine Pedroza RN) Support Person: Declan Bond (10/24/2016 22:06:Geraldine Pedroza RN) Support Person Relationship: (10/24/2016 22:06:Geraldine Pedroza RN) Cultural/Spritual Practice: No (10/24/2016 22:06:Geraldine Pedroza RN) Spir/Cult Dietary Needs: No (10/24/2016 22:06:Geraldine Pedroza RN) LIVING SITUATION/DISCHARGE PLAN Living Arrangements: House (10/24/2016 22:06:Geraldine Pedroza RN) Adequate Access to:: Electric; Heat; Refrigeration; Plumbing/Running water; Phone; Transportation (10/24/2016 22:06:Geraldine Pedroza RN) WIC Program: Yes (10/24/2016 22:06:Geraldine Pedroza RN) Discharge Regulatory Specialist Person: Declan (10/24/2016 22:06:Geraldine Pedroza RN) Person to Help after Discharge: Declan (10/24/2016 22:06:Geraldine Pedroza RN) Currently Using Commun Resources: No (10/24/2016 22:06:Geraldine Pedroza RN) Outside Agency/Hired Worker: No (10/24/2016 22:06:Geraldine Pedroza RN) Car Seat for Discharge: Yes (10/24/2016 22:06:Geraldine Pedroza RN) Adoption Requested: No (10/24/2016 22:06:Geraldine Pedroza RN) Pt Contact w/ Post : N/A (10/24/2016 22:06:Geraldine Pedroza RN) LABS Blood Type: AB Positive (10/24/2016 22:06:Prerna Day RN) Antibody Screen: negative (10/24/2016 22:06:Prerna Day RN) Hemoglobin: 12.5 (10/24/2016 22:31:QS system process) Hematocrit: 36.2 (10/24/2016 22:31:QS system process) MCV: 90 (10/24/2016 22:31:QS system process) Group Beta Strep: negative (10/24/2016 22:06:Prerna Day RN) Gonorrhea: Negative (10/24/2016 22:06:Prerna Day RN) Chlamydia: Negative (10/24/2016 22:06:Prerna Day RN) RPR/VDRL: Nonreactive (10/24/2016 22:06:Prerna Day RN) HIV Results: non-reactive (10/24/2016 22:06:Prerna Day RN) Hepatitis B: Negative (10/24/2016 22:06:Prerna Day RN) Rubella: Immune (10/24/2016 22:06:Prerna Day RN) OB/PREVIOUS HISTORY Previous Procedures: Ultrasound; NST (10/24/2016 22:06:Geraldine Pedroza RN) Current Procedures: Ultrasound; NST (10/24/2016 22:06:Geraldine Pedroza RN) History of Previous : No (10/24/2016 22:06:Geraldine Pedroza RN) History of Gestational Diabetes: No (10/24/2016 22:06:Geraldine Pedroza RN) History of PIH: No (10/24/2016 22:06:Geraldine Pedroza RN) History of Incompetent Cervix: No (10/24/2016 22:06:Geraldine Pedroza RN) History of Placenta Previa/Abrup: No (10/24/2016 22:06:Geraldine Pedroza RN) History of Macrosomia: No (10/24/2016 22:06:Geraldine Pedroza RN) History of IUGR: No (10/24/2016 22:06:Geraldine Pedroza RN) History of Hemorrhage: No (10/24/2016 22:06:Geraldine Pedroza RN) History of Loss/Stillborn: No (10/24/2016 22:06:Geraldine Pedroza RN) History of : No (10/24/2016 22:06:Geraldine Pedroza RN) History of D (Rh) Sensitization: No (10/24/2016 22:06:Geraldine Pedroza RN) History Recurrent Loss/Stillborn: No (10/24/2016 22:06:Geraldine Pedroza RN) History Depression/PP Depression: No (10/24/2016 22:06:Geraldine Pedroza RN) History of Uterine Anomaly/SYL: No (10/24/2016 22:06:Geraldine Pedroza RN) History of Infertility: No (10/24/2016 22:06:Geraldine Pedroza RN) History of ART Treatment: No (10/24/2016 22:06:Geraldine Pedroza RN) History of SYL: No (10/24/2016 22:06:Geraldine Pedroza RN) Comments Obstetrical History: G1: SAB 2013 G2: Female 2014 7 pounds 6 ounces G3: Current (10/24/2016 22:06:Geraldine Pedroza RN) MEDICAL HISTORY Med Hx Diabetes: No (10/24/2016 22:06:Geraldine Pedroza RN) Med Hx Hypertension: No (10/24/2016 22:06:Geraldine Pedroza RN) Med Hx Heart Disease: No (10/24/2016 22:06:Geraldine Pedroza RN) Med Hx Autoimmune Disorder: No (10/24/2016 22:06:Geraldine Pedroza RN) Med Hx Kidney Disease/UTI: No (10/24/2016 22:06:Geraldine Pedroza RN) Med Hx Neurologic/Epilepsy: No (10/24/2016 22:06:Geraldine Pedroza RN) Med Hx Psychiatric Disorders: No (10/24/2016 22:06:Geraldine Pedroza RN) Med Hx Hepatitis/Liver Disease: No (10/24/2016 22:06:Geraldine Pedroza RN) Med Hx Varicosities/Phlebitis: No (10/24/2016 22:06:Geraldine Pedroza RN) Med Hx Thyroid Dysfunction: Yes (10/24/2016 22:06:Prerna Day RN) Med Hx Trauma/Violence: No (10/24/2016 22:06:Geraldine Pedroza RN) Med Hx Blood Transfusion: No (10/24/2016 22:06:Geraldine Pedroza RN) Med Hx Pulmonary (Asthma,TB): No (10/24/2016 22:06:Geraldine Pedroza RN) Med Hx Breast: No (10/24/2016 22:06:Geraldine Pedroza RN) Med 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 (10/24/2016 22:06:Geraldine Pedroza RN) Med Hx Hospitalization/Surgery: Yes (10/24/2016 22:06:Geraldine Pedroza RN) Med Hx Anesthetic Complications: No (10/24/2016 22:06:Geraldine Pedroza RN) Med Hx Abnormal Pap Smear: No (10/24/2016 22:06:Geraldine Pedroza RN) Other Medical Diseases: No (10/24/2016 22:06:Geraldine Pedroza RN) Med Hx Significant Family Hx: No (10/24/2016 22:06:Geraldine Pedroza RN) Details of Med/Surg Hx: On synthroid hypothyroidism, childbirth (10/24/2016 22:06:Geraldine Pedroza RN) INFECTIOUS HISTORY Inf Hx Gonorrhea: No (10/24/2016 22:06:Geraldine Pedroza RN) Inf Hx Chlamydia: No (10/24/2016 22:06:Geraldine Pedroza RN) Inf Hx Syphilis: No (10/24/2016 22:06:Geraldine Pedroza RN) Inf Hx HIV/AIDS: No (10/24/2016 22:06:Geraldine Pedroza RN) Inf Hx Human Papilloma Virus: No (10/24/2016 22:06:Geraldine Pedroza RN) Inf Hx Pt/Partner Genital Herpes: No (10/24/2016 22:06:Geraldine Pedroza RN) Inf Hx Tuberculosis/Exposure: No (10/24/2016 22:06:Geraldine Pedroza RN) Inf Hx Hepatitis B,C: No (10/24/2016 22:06:Geraldine Pedroza RN) Inf Hx Rash or Viral Illness: No (10/24/2016 22:06:Geraldine Pedroza RN) GENETIC HISTORY Gen Hx Age >=35 at PATRICIA: No (10/24/2016 22:06:Geraldine Pedroza RN) Gen Hx Thalassemia: No (10/24/2016 22:06:Geraldine Pedroza RN) Gen Hx Congenital Heart Defect: No (10/24/2016 22:06:Geraldine Pedroza RN) Gen Hx Neural Tube Defect: No (10/24/2016 22:06:Geraldine Pedroza RN) Gen Hx Down's Syndrome: No (10/24/2016 22:06:Geraldine Pedroza RN) Gen Hx Carmine-Sachs: No (10/24/2016 22:06:Geraldine Pedroza RN) Gen Hx Darlene: No (10/24/2016 22:06:Geraldine Pedroza RN) Gen Hx Familial Dysautonomia: No (10/24/2016 22:06:Geraldine Pedroza RN) Gen Hx Sickle Cell Disease/Trait: No (10/24/2016 22:06:Geraldine Pedroza RN) Gen Hx Hemophilia/Blood Disorder: No (10/24/2016 22:06:Geraldine Pedroza RN) Gen Hx Muscular Dystrophy: No (10/24/2016 22:06:Geraldine Pedroza RN) Gen Hx Cystic Fibrosis: No (10/24/2016 22:06:Geraldine Pedroza RN) Gen Hx Huntingtons Chorea: No (10/24/2016 22:06:Geraldine Pedroza RN) Gen Hx Mental Retardation/Autism: No (10/24/2016 22:06:Geraldine Pedroza RN) Gen Hx Tested for Fragile X: No (10/24/2016 22:06:Geraldine Pedroza RN) Gen Hx Other Inher/Chromosomal: No (10/24/2016 22:06:Geraldine Pedroza RN) Gen Hx Maternal Metabolic DO: No (10/24/2016 22:06:Geraldine Pedroza RN) Gen Hx Pt Father or FOB Defect: No (10/24/2016 22:06:Geraldine Pedroza RN) Gen Hx Other Genetic History: No (10/24/2016 22:06:Geraldine Pedroza RN) Gen Hx Drugs/Meds since LMP: No (10/24/2016 22:06:Geraldine Pedroza RN)
--- NOTE | 2016-10-25 06:23 | L&D General Admission ---
General Admit Datetime Report Generated by CPN: 10/25/2016 06:00 INFORMATION Patient Age: 21 (10/24/2016 22:00:QS system process) EDC: 10/19/2016 00:00 (10/24/2016 22:06:Prerna Day RN) : 3 (10/24/2016 22:06:Prerna Day RN) Para: 1 (10/24/2016 22:06:Prerna Day RN) Term: 1 (10/24/2016 22:06:Prerna Day RN) : 0 (10/24/2016 22:06:Prerna Day RN) Spontaneous Abortions: 1 (10/24/2016 22:06:Prerna Day RN) Induced Abortions: 0 (10/24/2016 22:06:Prerna Day RN) Livin (10/24/2016 22:06:Prerna Day RN) Baby, Number in Womb: 1 (10/24/2016 22:06:Prerna Day RN) CARE Primary Director Process Engineering: [employer] (10/24/2016 22:06:Geraldine Pedroza, RN) Adequate Care: Yes (10/24/2016 22:06:Geraldine Pedroza, RN) Height (in): 58 (10/25/2016 01:51:QS system process) ALLERGIES Medication Allergy: No (10/24/2016 22:06:Geraldine Pedroza, RN) Medication Allergies: No Known Drug Allergies (10/24/2016) (10/24/2016 22:12:QS system process) Latex Allergy: No Latex Allergies (10/24/2016 22:06:Geraldine Pedroza, RN) Food Allergies: none (10/24/2016 22:06:Geraldine Pedroza, RN) Environmental Allergies: none (10/24/2016 22:06:Geraldine Pedroza, RN) COMMUNICATION Primary Language: Maori (10/24/2016 22:06:Geraldine Pedroza RN) Medical Tx Preferred Language: Maori (10/24/2016 22:06:Geraldine Pedroza RN) DEMOGRAPHICS Address: [address] [place] [id number] (10/24/2016 22:00:QS system process) Zipcode: [address] (10/24/2016 22:00:QS system process) Home (10/24/2016 22:00:QS system process) SSN: [id number] (10/24/2016 22:00:QS system process) Next of Kin Name: SANDY SEGURA (10/24/2016 22:00:QS system process) Next of Kin (10/24/2016 22:00:QS system process) Next of Kin Relationship: FA (10/24/2016 22:00:QS system process) Date of : 1995 (10/24/2016 22:00:QS system process) Marital Status: (10/24/2016 22:00:QS system process) Sex: Female (10/24/2016 22:00:QS system process) Race: (10/24/2016 22:00:QS system process) Ethnicity: Non- or (10/24/2016 22:00:QS system process) Advent: None (10/24/2016 22:00:QS system process) DRUG AND ALCOHOL USE Alcohol: No (10/24/2016 22:06:Geraldine Pedroza RN) Cigarettes: Former Smoker. [id number] (10/24/2016 22:06:Geraldine Pedroza, RN) Marijuana: No (10/24/2016 22:06:Geraldine Pedroza RN) Cocaine: No (10/24/2016 22:06:Geraldine Pedroza, RN) Other Illicit Drugs: No (10/24/2016 22:06:Geraldine Pedroza, RN) VACCINE HISTORY Influenza Vaccine: Yes (10/24/2016 22:06:Geraldine Pedroza RN) Pneumococcal Vaccine: No (10/24/2016 22:06:Geraldine Pedroza RN) Tetanus Vaccine: Yes (10/24/2016 22:06:Geraldine Pedroza RN) Tdap Vaccine: Yes (10/24/2016 22:06:Geraldine Pedroza RN) Hepatitis B Vaccine: Yes (10/24/2016 22:06:Geraldine Pedroza RN) Chainstitch Elastic Attacher: [facility] (10/24/2016 22:06:Geraldine Pedroza RN) Feeding Preference: Breast (10/24/2016 22:06:Geraldine Pedroza RN) Benefit of Breast Feed Discussed: Yes (10/24/2016 22:06:Geraldine Pedroza RN) Circumcision: N/A (10/24/2016 22:06:Geraldine Pedroza RN) Classes Attended: No (10/24/2016 22:06:Geraldine Pedroza RN) Tubal Ligation: No (10/24/2016 22:06:Geraldine Pedroza RN) Tubal Authorization Signed: N/A (10/24/2016 22:06:Geraldine Pedroza RN) Consent: N/A (10/24/2016 22:06:Geraldine Pedroza RN) Consent Signed: N/A (10/24/2016 22:06:Geraldine Pedroza RN) Pain Management Plans: Epidural (10/24/2016 22:06:Geraldine Pedroza RN) Plans for Labor and Delivery: None (10/24/2016 22:06:Geraldine Pedroza RN) Support Person: Declan Bond (10/24/2016 22:06:Geraldine Pedroza RN) Support Person Relationship: (10/24/2016 22:06:Geraldine Pedroza RN) Cultural/Spritual Practice: No (10/24/2016 22:06:Geraldine Pedroza RN) Spir/Cult Dietary Needs: No (10/24/2016 22:06:Geraldine Pedroza RN) LIVING SITUATION/DISCHARGE PLAN Living Arrangements: House (10/24/2016 22:06:Geraldine Pedroza RN) Adequate Access to:: Electric; Heat; Refrigeration; Plumbing/Running water; Phone; Transportation (10/24/2016 22:06:Geraldine Pedroza RN) WIC Program: Yes (10/24/2016 22:06:Geraldine Pedroza RN) Discharge Nail Machine Operator Person: Declan (10/24/2016 22:06:Geraldine Pedroza RN) Person to Help after Discharge: Declan (10/24/2016 22:06:Geraldine Pedroza RN) Currently Using Commun Resources: No (10/24/2016 22:06:Geraldine Pedroza RN) Outside Agency/[employer] Food Service Supervisor: No (10/24/2016 22:06:Geraldine Pedroza RN) Car Seat for Discharge: Yes (10/24/2016 22:06:Geraldine Pedroza RN) Adoption Requested: No (10/24/2016 22:06:Geraldine Pedroza RN) Pt Contact w/infant Post : N/A (10/24/2016 22:06:Geraldine Pedroza RN) LABS Blood Type: AB Positive (10/24/2016 22:06:Prerna Day RN) Antibody Screen: negative (10/24/2016 22:06:Prerna Day RN) Hemoglobin: 12.5 (10/24/2016 22:31:QS system process) Hematocrit: 36.2 (10/24/2016 22:31:QS system process) MCV: 90 (10/24/2016 22:31:QS system process) Group Beta Strep: negative (10/24/2016 22:06:Prerna Day RN) Gonorrhea: Negative (10/24/2016 22:06:Prerna Day RN) Chlamydia: Negative (10/24/2016 22:06:Prerna Day RN) RPR/VDRL: Nonreactive (10/24/2016 22:06:Prerna Day RN) HIV Results: non-reactive (10/24/2016 22:06:Prerna Day RN) Hepatitis B: Negative (10/24/2016 22:06:Prerna Day RN) Rubella: Immune (10/24/2016 22:06:Prerna Day RN) OB/PREVIOUS HISTORY Previous Procedures: Ultrasound; NST (10/24/2016 22:06:Geraldine Pedroza RN) Current Procedures: Ultrasound; NST (10/24/2016 22:06:Geraldine Pedroza RN) History of Previous : No (10/24/2016 22:06:Geraldine Pedroza RN) History of Gestational Diabetes: No (10/24/2016 22:06:Geraldine Pedroza RN) History of PIH: No (10/24/2016 22:06:Geraldine Pedroza RN) History of Incompetent Cervix: No (10/24/2016 22:06:Geraldine Pedroza RN) History of Placenta Previa/Abrup: No (10/24/2016 22:06:Geraldine Pedroza RN) History of Macrosomia: No (10/24/2016 22:06:Geraldine Pedroza RN) History of IUGR: No (10/24/2016 22:06:Geraldine Pedroza RN) History of Hemorrhage: No (10/24/2016 22:06:Geraldine Pedroza RN) History of Loss/Stillborn: No (10/24/2016 22:06:Geraldine Pedroza RN) History of : No (10/24/2016 22:06:Geraldine Pedroza RN) History of D (Rh) Sensitization: No (10/24/2016 22:06:Geraldine Pedroza RN) History Recurrent Loss/Stillborn: No (10/24/2016 22:06:Geraldine Pedroza RN) History Depression/PP Depression: No (10/24/2016 22:06:Geraldine Pedroza RN) History of Uterine Anomaly/SYL: No (10/24/2016 22:06:Geraldine Pedroza RN) History of Infertility: No (10/24/2016 22:06:Geraldine Pedroza RN) History of ART Treatment: No (10/24/2016 22:06:Geraldine Pedroza RN) History of SYL: No (10/24/2016 22:06:Geraldine Pedroza RN) Comments Obstetrical History: G1: SAB 2013 G2: Female 2015 7 pounds 6 ounces G3: Current (10/24/2016 22:06:Geraldine Pedroza RN) MEDICAL HISTORY Med Hx Diabetes: No (10/24/2016 22:06:Geraldine Pedroza RN) Med Hx Hypertension: No (10/24/2016 22:06:Geraldine Pedroza RN) Med Hx Heart Disease: No (10/24/2016 22:06:Geraldine Pedroza RN) Med Hx Autoimmune Disorder: No (10/24/2016 22:06:Geraldine Pedroza RN) Med Hx Kidney Disease/UTI: No (10/24/2016 22:06:Geraldine Pedroza RN) Med Hx Neurologic/Epilepsy: No (10/24/2016 22:06:Geraldine Pedroza RN) Med Hx Psychiatric Disorders: No (10/24/2016 22:06:Geraldine Pedroza RN) Med Hx Hepatitis/Liver Disease: No (10/24/2016 22:06:Geraldine Pedroza RN) Med Hx Varicosities/Phlebitis: No (10/24/2016 22:06:Geraldine Pedroza RN) Med Hx Thyroid Dysfunction: Yes (10/24/2016 22:06:Prerna Day RN) Med Hx Trauma/Violence: No (10/24/2016 22:06:Geraldine Pedroza RN) Med Hx Blood Transfusion: No (10/24/2016 22:06:Geraldine Pedroza RN) Med Hx Pulmonary (Asthma,TB): No (10/24/2016 22:06:Geraldine Pedroza RN) Med Hx Breast: No (10/24/2016 22:06:Geraldine Pedroza RN) Med Hx MANAGED CARE DIRECTOR Surgery: No (10/24/2016 22:06:Geraldine Pedroza RN) Med Hx Hospitalization/Surgery: Yes (10/24/2016 22:06:Geraldine Pedroza RN) Med Hx Anesthetic Complications: No (10/24/2016 22:06:Geraldine Pedroza RN) Med Hx Abnormal Pap Smear: No (10/24/2016 22:06:Geraldine Pedroza RN) Other Medical Diseases: No (10/24/2016 22:06:Geraldine Pedroza RN) Med Hx Significant Family Hx: No (10/24/2016 22:06:Geraldine Pedroza RN) Details of Med/Surg Hx: On synthroid hypothyroidism, childbirth (10/24/2016 22:06:Geraldine Pedroza RN) INFECTIOUS HISTORY Inf Hx Gonorrhea: No (10/24/2016 22:06:Geraldine Pedroza RN) Inf Hx Chlamydia: No (10/24/2016 22:06:Geraldine Pedroza RN) Inf Hx Syphilis: No (10/24/2016 22:06:Geraldine Pedroza RN) Inf Hx HIV/AIDS: No (10/24/2016 22:06:Geraldine Pedroza RN) Inf Hx Human Papilloma Virus: No (10/24/2016 22:06:Geraldine Pedroza RN) Inf Hx Pt/Partner Genital Herpes: No (10/24/2016 22:06:Geraldine Pedroza RN) Inf Hx Tuberculosis/Exposure: No (10/24/2016 22:06:Geraldine Pedroza RN) Inf Hx Hepatitis B,C: No (10/24/2016 22:06:Geraldine Pedroza RN) Inf Hx Rash or Viral Illness: No (10/24/2016 22:06:Geraldine Pedroza RN) GENETIC HISTORY Gen Hx Age >=35 at PATRICIA: No (10/24/2016 22:06:Geraldine Pedroza RN) Gen Hx Thalassemia: No (10/24/2016 22:06:Geraldine Pedroza RN) Gen Hx Congenital Heart Defect: No (10/24/2016 22:06:Geraldine Pedroza RN) Gen Hx Neural Tube Defect: No (10/24/2016 22:06:Geraldine Pedroza RN) Gen Hx Down's Syndrome: No (10/24/2016 22:06:Geraldine Pedroza RN) Gen Hx Carmine-Sachs: No (10/24/2016 22:06:Geraldine Pedroza RN) Gen Hx Darlene: No (10/24/2016 22:06:Geraldine Pedroza RN) Gen Hx Familial Dysautonomia: No (10/24/2016 22:06:Geraldine Pedroza RN) Gen Hx Sickle Cell Disease/Trait: No (10/24/2016 22:06:Geraldine Pedroza RN) Gen Hx Hemophilia/Blood Disorder: No (10/24/2016 22:06:Geraldine Pedroza RN) Gen Hx Muscular Dystrophy: No (10/24/2016 22:06:Geraldine Pedroza RN) Gen Hx Cystic Fibrosis: No (10/24/2016 22:06:Geraldine Pedroza RN) Gen Hx Huntingtons Chorea: No (10/24/2016 22:06:Geraldine Pedroza RN) Gen Hx Mental Retardation/Autism: No (10/24/2016 22:06:Geraldine Pedroza RN) Gen Hx Tested for Fragile X: No (10/24/2016 22:06:Geraldine Pedroza RN) Gen Hx Other Inher/Chromosomal: No (10/24/2016 22:06:Geraldine Pedroza RN) Gen Hx Maternal Metabolic DO: No (10/24/2016 22:06:Geraldine Pedroza RN) Gen Hx Pt Father or FOB Defect: No (10/24/2016 22:06:Geraldine Pedroza RN) Gen Hx Other Genetic History: No (10/24/2016 22:06:Geraldine Pedroza RN) Gen Hx Drugs/Meds since LMP: No (10/24/2016 22:06:Geraldine Pedroza RN)
[2016-10-25] MEDS: IBUPROFEN 800 MG TABLET PO SCH ×3 (06:57→21:38)
[2016-10-25 07:21] LABS: HEMATOCRIT 38.2 % (36.0-47.0); HEMOGLOBIN 12.9 g/dL (12.0-15.5); HGB HCT DIFFERENCE 0.5; MEAN CORPUSCULAR HEMOGLOBIN 30.7 pg (27.0-33.4); MEAN CORPUSCULAR HGB CONC 33.8 g/dL (32.0-36.0); MEAN CORPUSCULAR VOLUME 91 fl (80-97); RED BLOOD COUNT 4.21 10^6/uL (3.72-5.28); RED CELL DISTRIBUTION WIDTH 12.8 % (11.5-14.0)
[2016-10-25] MEDS: DOCUSATE SODIUM 100 MG CAPSULE PO SCH ×2 (10:30→17:21)
[2016-10-25] MEDS: SENNOSIDES/DOCUSATE 8.6-50 MG 1 EACH TABLET PO SCH (10:31)
[2016-10-25] MEDS: FERROUS SULFATE 325 MG TABLET PO SCH ×2 (10:32→17:21)
[2016-10-25] MEDS: PRENATAL VITAMIN W-O CA NO5/FE FUMARATE/FA CAPSULE PO SCH (10:32)
--- NOTE | 2016-10-25 11:39 | PDOC PROGRESS REPORT ---
Subjective-OB Subjective: Post Delivery Day: 1 21 year old. Denies any needs at this time, states lochia is stable, pain well controlled, voiding without difficulty. Physical Exam (OB) Vital Signs: Temp Pulse Resp BP Pulse Ox 98.1 F 61 17 103/63 100 10/25/16 09:21 10/25/16 09:21 10/25/16 09:21 10/25/16 09:29 10/25/16 09:21 Intake & Output 10/24/16 10/25/16 10/26/16 06:59 06:59 06:59 Weight 69.75 kg - PIH/Pre-Eclampsia DTR's: 2 + - Lochia Lochia Amount: Scant < 10 ml Lochia Color: Rubra/Red - Abdomen Description: Soft, Round Hernia Present: No Fundal Description: Firm, Midline Fundal Height: u/u - u/2 Objective-Diagnostic Laboratory: 10/25/16 06:51 10/24/16 10/24/16 10/24/16 22:12 22:31 22:31 WBC 14.9 H RBC 4.02 Hgb 12.5 Hct 36.2 MCV 90 MCH 31.1 MCHC 34.5 RDW 12.9 Plt Count 215 Seg Neutrophils % 76.7 Lymphocytes % 16.4 Monocytes % 6.2 Eosinophils % 0.1 Basophils % 0.6 Absolute Neutrophils 11.5 H Absolute Lymphocytes 2.4 Absolute Monocytes 0.9 Absolute Eosinophils 0.0 Absolute Basophils 0.1 Urine Color YELLOW Urine Appearance CLOUDY Urine pH 7.0 Ur Specific Leonard 1.011 Urine Protein NEGATIVE Urine Glucose (UA) NEGATIVE Urine Ketones 80 H Urine Blood NEGATIVE Urine Nitrite NEGATIVE Ur Leukocyte Esterase SMALL H Blood Type AB POSITIVE Antibody Screen NEGATIVE 10/25/16 06:51 WBC 15.0 H RBC 4.21 Hgb 12.9 Hct 38.2 MCV 91 MCH 30.7 MCHC 33.8 RDW 12.8 Plt Count 245 Seg Neutrophils % Lymphocytes % Monocytes % Eosinophils % Basophils % Absolute Neutrophils Absolute Lymphocytes Absolute Monocytes Absolute Eosinophils Absolute Basophils Urine Color Urine Appearance Urine pH Ur Specific Leonard Urine Protein Urine Glucose (UA) Urine Ketones Urine Blood Urine Nitrite Ur Leukocyte Esterase Blood Type Antibody Screen Assessment and Plan(PN) - Assessment and Plan (1) Vaginal delivery Is this a current diagnosis for this admission?: YesPlan: routine pp care anticipate d/c home tomorrow - Time Spent with Patient Time with patient: Less than 15 minutes Critical Time spent with patient: Less than 15 minutes Medications reviewed and adjusted accordingly: Yes - Disposition Anticipated Discharge: Home Within: within 48 hours
[2016-10-26] MEDS: IBUPROFEN 800 MG TABLET PO SCH (06:12)
--- NOTE | 2016-10-26 06:22 | L&D General Admission ---
General Admit Datetime Report Generated by CPN: 10/26/2016 06:00 INFORMATION Patient Age: 21 (10/24/2016 22:00:QS system process) EDC: 10/19/2016 00:00 (10/24/2016 22:06:Prerna Day RN) : 3 (10/24/2016 22:06:Prerna Day RN) Para: 1 (10/24/2016 22:06:Prerna Day RN) Term: 1 (10/24/2016 22:06:Prerna Day RN) : 0 (10/24/2016 22:06:Prerna Day RN) Spontaneous Abortions: 1 (10/24/2016 22:06:Prerna Day RN) Induced Abortions: 0 (10/24/2016 22:06:Prerna Day RN) Livin (10/24/2016 22:06:Prerna Day RN) Baby, Number in Womb: 1 (10/24/2016 22:06:Prerna Day RN) CARE Primary Tax Agent: [employer] (10/24/2016 22:06:Geraldine Pedroza, RN) Adequate Care: Yes (10/24/2016 22:06:Geraldine Pedroza, RN) Height (in): 58 (10/25/2016 07:56:QS system process) ALLERGIES Medication Allergy: No (10/24/2016 22:06:Geraldine Pedroza, RN) Medication Allergies: No Known Drug Allergies (10/24/2016) (10/24/2016 22:12:QS system process) Latex Allergy: No Latex Allergies (10/24/2016 22:06:Geraldine Pedroza, RN) Food Allergies: none (10/24/2016 22:06:Geraldine Pedroza, RN) Environmental Allergies: none (10/24/2016 22:06:Geraldine Pedroza, RN) COMMUNICATION Primary Language: Faroese (10/24/2016 22:06:Geraldine Pedroza RN) Medical Tx Preferred Language: Faroese (10/24/2016 22:06:Geraldine Pedroza RN) DEMOGRAPHICS Address: [address] [place] [id number] (10/24/2016 22:00:QS system process) Zipcode: [address] (10/24/2016 22:00:QS system process) Home (10/24/2016 22:00:QS system process) SSN: [id number] (10/24/2016 22:00:QS system process) Next of Kin Name: SANDY SEGURA (10/24/2016 22:00:QS system process) Next of Kin (10/24/2016 22:00:QS system process) Next of Kin Relationship: FA (10/24/2016 22:00:QS system process) Date of : 1995 (10/24/2016 22:00:QS system process) Marital Status: (10/24/2016 22:00:QS system process) Sex: Female (10/24/2016 22:00:QS system process) Race: (10/24/2016 22:00:QS system process) Ethnicity: Non- or (10/24/2016 22:00:QS system process) Quaker: None (10/24/2016 22:00:QS system process) DRUG AND ALCOHOL USE Alcohol: No (10/24/2016 22:06:Geraldine Pedroza RN) Cigarettes: Former Smoker. [id number] (10/24/2016 22:06:Geraldine Pedroza, RN) Marijuana: No (10/24/2016 22:06:Geraldine Pedroza RN) Cocaine: No (10/24/2016 22:06:Geraldine Pedroza, RN) Other Illicit Drugs: No (10/24/2016 22:06:Geraldine Pedroza, RN) VACCINE HISTORY Influenza Vaccine: Yes (10/24/2016 22:06:Geraldine Pedroza RN) Pneumococcal Vaccine: No (10/24/2016 22:06:Geraldine Pedroza RN) Tetanus Vaccine: Yes (10/24/2016 22:06:Geraldine Pedroza RN) Tdap Vaccine: Yes (10/24/2016 22:06:Geraldine Pedroza RN) Hepatitis B Vaccine: Yes (10/24/2016 22:06:Geraldine Pedroza RN) Sheep Or Calf Grader: [facility] (10/24/2016 22:06:Geraldine Pedroza RN) Feeding Preference: Breast (10/24/2016 22:06:Geraldine Pedroza RN) Benefit of Breast Feed Discussed: Yes (10/24/2016 22:06:Geraldine Pedroza RN) Circumcision: N/A (10/24/2016 22:06:Geraldine Pedroza RN) Classes Attended: No (10/24/2016 22:06:Geraldine Pedroza RN) Tubal Ligation: No (10/24/2016 22:06:Geraldine Pedroza RN) Tubal Authorization Signed: N/A (10/24/2016 22:06:Geraldine Pedroza RN) Consent: N/A (10/24/2016 22:06:Geraldine Pedroza RN) Consent Signed: N/A (10/24/2016 22:06:Geraldine Pedroza RN) Pain Management Plans: Epidural (10/24/2016 22:06:Geraldine Pedroza RN) Plans for Labor and Delivery: None (10/24/2016 22:06:Geraldine Pedroza RN) Support Person: Declan Bond (10/24/2016 22:06:Geraldine Pedroza RN) Support Person Relationship: (10/24/2016 22:06:Geraldine Pedroza RN) Cultural/Spritual Practice: No (10/24/2016 22:06:Geraldine Pedroza RN) Spir/Cult Dietary Needs: No (10/24/2016 22:06:Geraldine Pedroza RN) LIVING SITUATION/DISCHARGE PLAN Living Arrangements: House (10/24/2016 22:06:Geraldine Pedroza RN) Adequate Access to:: Electric; Heat; Refrigeration; Plumbing/Running water; Phone; Transportation (10/24/2016 22:06:Geraldine Pedroza RN) WIC Program: Yes (10/24/2016 22:06:Geraldine Pedroza RN) Discharge Stone Layer Person: Declan (10/24/2016 22:06:Geraldine Pedroza RN) Person to Help after Discharge: Declan (10/24/2016 22:06:Geraldine Pedroza RN) Currently Using Commun Resources: No (10/24/2016 22:06:Geraldine Pedroza RN) Outside Agency/Information Security Risk Analyst: No (10/24/2016 22:06:Geraldine Pedroza RN) Car Seat for Discharge: Yes (10/24/2016 22:06:Geraldine Pedroza RN) Adoption Requested: No (10/24/2016 22:06:Geraldine Pedroza RN) Pt Contact w/infant Post : N/A (10/24/2016 22:06:Geraldine Pedroza RN) LABS Blood Type: AB Positive (10/24/2016 22:06:Prerna Day RN) Antibody Screen: negative (10/24/2016 22:06:Prerna Day RN) Hemoglobin: 12.9 (10/25/2016 06:51:QS system process) Hematocrit: 38.2 (10/25/2016 06:51:QS system process) MCV: 91 (10/25/2016 06:51:QS system process) Group Beta Strep: negative (10/24/2016 22:06:Prerna Day RN) Gonorrhea: Negative (10/24/2016 22:06:Prerna Day RN) Chlamydia: Negative (10/24/2016 22:06:Prerna Day RN) RPR/VDRL: Nonreactive (10/24/2016 22:06:Prerna Day RN) HIV Results: non-reactive (10/24/2016 22:06:Prerna Day RN) Hepatitis B: Negative (10/24/2016 22:06:Prerna Day RN) Rubella: Immune (10/24/2016 22:06:Prerna Day RN) OB/PREVIOUS HISTORY Previous Procedures: Ultrasound; NST (10/24/2016 22:06:Geraldine Pedroza RN) Current Procedures: Ultrasound; NST (10/24/2016 22:06:Geraldine Pedroza RN) History of Previous : No (10/24/2016 22:06:Geraldine Pedroza RN) History of Gestational Diabetes: No (10/24/2016 22:06:Geraldine Pedroza RN) History of PIH: No (10/24/2016 22:06:Geraldine Pedroza RN) History of Incompetent Cervix: No (10/24/2016 22:06:Geraldine Pedroza RN) History of Placenta Previa/Abrup: No (10/24/2016 22:06:Geraldine Pedroza RN) History of Macrosomia: No (10/24/2016 22:06:Geraldine Pedroza RN) History of IUGR: No (10/24/2016 22:06:Geraldine Pedroza RN) History of Hemorrhage: No (10/24/2016 22:06:Geraldine Pedroza RN) History of Loss/Stillborn: No (10/24/2016 22:06:Geraldine Pedroza RN) History of : No (10/24/2016 22:06:Geraldine Pedroza RN) History of D (Rh) Sensitization: No (10/24/2016 22:06:Geraldine Pedroza RN) History Recurrent Loss/Stillborn: No (10/24/2016 22:06:Geraldine Pedroza RN) History Depression/PP Depression: No (10/24/2016 22:06:Geraldine Pedroza RN) History of Uterine Anomaly/SYL: No (10/24/2016 22:06:Geraldine Pedroza RN) History of Infertility: No (10/24/2016 22:06:Geraldine Pedroza RN) History of ART Treatment: No (10/24/2016 22:06:Geraldine Pedroza RN) History of SYL: No (10/24/2016 22:06:Geraldine Pedroza RN) Comments Obstetrical History: G1: SAB 2013 G2: Female 2015 7 pounds 6 ounces G3: Current (10/24/2016 22:06:Geraldine Pedroza RN) MEDICAL HISTORY Med Hx Diabetes: No (10/24/2016 22:06:Geraldine Pedroza RN) Med Hx Hypertension: No (10/24/2016 22:06:Geraldine Pedroza RN) Med Hx Heart Disease: No (10/24/2016 22:06:Geraldine Pedroza RN) Med Hx Autoimmune Disorder: No (10/24/2016 22:06:Geraldine Pedroza RN) Med Hx Kidney Disease/UTI: No (10/24/2016 22:06:Geraldine Pedroza RN) Med Hx Neurologic/Epilepsy: No (10/24/2016 22:06:Geraldine Pedroza RN) Med Hx Psychiatric Disorders: No (10/24/2016 22:06:Geraldine Pedroza RN) Med Hx Hepatitis/Liver Disease: No (10/24/2016 22:06:Geraldine Pedroza RN) Med Hx Varicosities/Phlebitis: No (10/24/2016 22:06:Geraldine Pedroza RN) Med Hx Thyroid Dysfunction: Yes (10/24/2016 22:06:Prerna Day RN) Med Hx Trauma/Violence: No (10/24/2016 22:06:Geraldine Pedroza RN) Med Hx Blood Transfusion: No (10/24/2016 22:06:Geraldine Pedroza RN) Med Hx Pulmonary (Asthma,TB): No (10/24/2016 22:06:Geraldine Pedroza RN) Med Hx Breast: No (10/24/2016 22:06:Geraldine Pedroza RN) Med Hx STEREOTYPER HELPER Surgery: No (10/24/2016 22:06:Geraldine Pedroza RN) Med Hx Hospitalization/Surgery: Yes (10/24/2016 22:06:Geraldine Pedroza RN) Med Hx Anesthetic Complications: No (10/24/2016 22:06:Geraldine Pedroza RN) Med Hx Abnormal Pap Smear: No (10/24/2016 22:06:Geraldine Pedroza RN) Other Medical Diseases: No (10/24/2016 22:06:Geraldine Pedroza RN) Med Hx Significant Family Hx: No (10/24/2016 22:06:Geraldine Pedroza RN) Details of Med/Surg Hx: On synthroid hypothyroidism, childbirth (10/24/2016 22:06:Geraldine Pedroza RN) INFECTIOUS HISTORY Inf Hx Gonorrhea: No (10/24/2016 22:06:Geraldine Pedroza RN) Inf Hx Chlamydia: No (10/24/2016 22:06:Geraldine Pedroza RN) Inf Hx Syphilis: No (10/24/2016 22:06:Geraldine Pedroza RN) Inf Hx HIV/AIDS: No (10/24/2016 22:06:Geraldine Pedroza RN) Inf Hx Human Papilloma Virus: No (10/24/2016 22:06:Geraldine Pedroza RN) Inf Hx Pt/Partner Genital Herpes: No (10/24/2016 22:06:Geraldine Pedroza RN) Inf Hx Tuberculosis/Exposure: No (10/24/2016 22:06:Geraldine Pedroza RN) Inf Hx Hepatitis B,C: No (10/24/2016 22:06:Geraldine Pedroza RN) Inf Hx Rash or Viral Illness: No (10/24/2016 22:06:Geraldine Pedroza RN) GENETIC HISTORY Gen Hx Age >=35 at PATRICIA: No (10/24/2016 22:06:Geraldine Pedroza RN) Gen Hx Thalassemia: No (10/24/2016 22:06:Geraldine Pedroza RN) Gen Hx Congenital Heart Defect: No (10/24/2016 22:06:Geraldine Pedroza RN) Gen Hx Neural Tube Defect: No (10/24/2016 22:06:Geraldine Pedroza RN) Gen Hx Down's Syndrome: No (10/24/2016 22:06:Geraldine Pedroza RN) Gen Hx Carmine-Sachs: No (10/24/2016 22:06:Geraldine Pedroza RN) Gen Hx Darlene: No (10/24/2016 22:06:Geraldine Pedroza RN) Gen Hx Familial Dysautonomia: No (10/24/2016 22:06:Geraldine Pedroza RN) Gen Hx Sickle Cell Disease/Trait: No (10/24/2016 22:06:Geraldine Pedroza RN) Gen Hx Hemophilia/Blood Disorder: No (10/24/2016 22:06:Geraldine Pedroza RN) Gen Hx Muscular Dystrophy: No (10/24/2016 22:06:Geraldine Pedroza RN) Gen Hx Cystic Fibrosis: No (10/24/2016 22:06:Geraldine Pedroza RN) Gen Hx Huntingtons Chorea: No (10/24/2016 22:06:Geraldine Pedroza RN) Gen Hx Mental Retardation/Autism: No (10/24/2016 22:06:Geraldine Pedroza RN) Gen Hx Tested for Fragile X: No (10/24/2016 22:06:Geraldine Pedroza RN) Gen Hx Other Inher/Chromosomal: No (10/24/2016 22:06:Geraldine Pedroza RN) Gen Hx Maternal Metabolic DO: No (10/24/2016 22:06:Geraldine Pedroza RN) Gen Hx Pt Father or FOB Defect: No (10/24/2016 22:06:Geraldine Pedroza RN) Gen Hx Other Genetic History: No (10/24/2016 22:06:Geraldine Pedroza RN) Gen Hx Drugs/Meds since LMP: No (10/24/2016 22:06:Geraldine Pedroza RN)
--- NOTE | 2016-10-26 06:22 | L&D Current Admission ---
Current Admit Datetime Report Generated by CPN: 10/26/2016 06:00 ADMISSION INFORMATION Current Admit Date/Time: 10/24/2016 22:44 (10/24/2016 22:44:Geraldine Pedroza RN) Reason for Admission: Onset of Labor (10/24/2016 22:44:Geraldine Pedroza RN) Chief Complaint: Contractions (10/24/2016 22:30:Geraldine Pedroza RN) EGA per Dates: 40.5 (10/24/2016 22:44:QS system process) Method of Arrival: Wheelchair (10/24/2016 22:44:Geraldine Pedroza RN) Reason for Induction: Not Applicable (10/24/2016 22:44:Geraldine Pedroza RN) Records Available: Yes (10/24/2016 22:44:Geraldine Pedroza RN) General Admission Information: Reviewed (10/24/2016 22:44:Geraldine Pedroza RN) BELONGINGS/ADVANCED DIRECTIVES Comments Regarding Disposition: see belongings consent form (10/24/2016 22:44:Geraldine Pedroza RN) Advance Direct for Healthcare: No, and Wants No Information (10/24/2016 22:44:Geraldine Pedroza RN) Durable Power of Letterpress Setter: No (10/24/2016 22:44:Geraldine Pedroza RN) Living Will: No (10/24/2016 22:44:Geraldine Pedroza RN) Organ Donor: Yes (10/24/2016 22:44:Geraldine Pedroza RN) Pt Rights Information Given: Yes (10/24/2016 22:44:Geraldine Pedroza RN) Pt Understands Pt Rights: Yes (10/24/2016 22:44:Geraldine Pedroza RN) LEARNING ASSESSMENT Knowledge Level: Understands L_D Process; Understands Care Activities; Understands Diagnosis (10/24/2016 22:44:Geraldine Pedroza RN) Barriers to Learning: None (10/24/2016 22:44:Geraldine Pedroza RN) Learning Readiness: Motivated (10/24/2016 22:44:Geraldine Pedroza RN) Learns Best By: 1 to 1 Instruction; Reading; Videos; Demonstration (10/24/2016 22:44:Geraldine Pedroza RN) Learning Needs: Labor and Delivery Process; Pain Management; Symptoms to Report; Treatment Plan; Medication; Diagnosis; Nutrition; Equipment; Care; Community Resources (10/24/2016 22:44:Geraldine Pedroza RN) DOMESTIC VIOLANCE SCREENING Dom Viol Threatened/Hurt: No (10/24/2016 22:44:Geraldine ePdroza RN) Hx of Abuse/Neglect past 2yrs: No (10/24/2016 22:44:Geraldine Pedroza RN) Feel Unsafe Going Home: No (10/24/2016 22:44:Geraldine Pedroza RN) Addt'l Observ Indicating Abuse: No (10/24/2016 22:44:Geraldine Pedroza RN) Reason Unable to Complete Screen: N/A, Screen Completed (10/24/2016 22:44:Geraldine Pedroza RN) Considered Personal Harm/Suicide: No (10/24/2016 22:44:Geraldine Pedroza RN) NUTRITIONAL/FUNCTIONAL SCREENING Problem with Appetite >5 Days: No (10/24/2016 22:44:Geraldine Pedroza RN) Chew/Swallow Difficulties: No (10/24/2016 22:44:Geraldine Pedroza RN) Inappropriate Wt Gain/Loss: No (10/24/2016 22:44:Geraldine Pedroza RN) Presence Skin Breakdown/Ulcer: No (10/24/2016 22:44:Geraldine Pedroza RN) Special Diet: No (10/24/2016 22:44:Geraldine Pedroza RN) Pt Requests Armored Transport Service Manager Visit: No (10/24/2016 22:44:Geraldine Pedroza RN) Hx of Any of the Following?: N/A (10/24/2016 22:44:Geraldine Pedroza RN) New Diagnosis of: N/A (10/24/2016 22:44:Geraldine Pedroza RN) Requires Assist w/Ambulation: No (10/24/2016 22:44:Geraldine Pedroza RN) Uses Assist Device to Ambulate: No (10/24/2016 22:44:Geraldine Pedroza RN) Pt Requires Help w/ADL's: No (10/24/2016 22:44:Geraldine Pedroza RN)
[2016-10-26 08:52] VITALS: BP 103/63
[2016-10-26] MEDS: FERROUS SULFATE 325 MG TABLET PO SCH (09:12)
[2016-10-26] MEDS: SENNOSIDES/DOCUSATE 8.6-50 MG 1 EACH TABLET PO SCH (09:12)
[2016-10-26] MEDS: DOCUSATE SODIUM 100 MG CAPSULE PO SCH (09:12)
[2016-10-26] MEDS: PRENATAL VITAMIN W-O CA NO5/FE FUMARATE/FA CAPSULE PO SCH (09:12)
--- NOTE | 2016-10-26 09:47 | PDOC DISCHARGE SUMMARY ---
Discharge Summary-OB Discharge Date: 10/26/16 - Final Diagnosis (1) Vaginal delivery Is this a current diagnosis for this admission?: Yes - Discharge Medication Home Medications: Levothyroxine Sodium [Synthroid] 25 mcg PO DAILY 10/24/16 Docusate Sodium [Colace 100 mg Capsule] 100 mg PO BID #60 capsule 10/26/16 Ibuprofen [Motrin 800 mg Tablet] 800 mg PO Q8 #60 tablet 10/26/16 Gestational Age: 40.5 Reason(s) for Admission: Onset of Labor Procedures: NST Intrapartum Procedure(s): Spontaneous Vaginal Delivery Complication(s): Laceration-Vaginal Laceration-Degree: 1st - Data Baby 1 Female at 1 minute: 8 at 5 minutes: 9 Weight: 3370 kg Home with Mother: Yes Complications: No - Diagnosis Test Laboratory: Temp Pulse Resp BP Pulse Ox 97.5 F 60 17 103/63 100 10/26/16 08:48 10/26/16 08:48 10/26/16 08:48 10/26/16 08:48 10/26/16 08:48 10/24/16 10/24/16 10/25/16 22:12 22:31 06:51 RBC 4.02 4.21 Hgb 12.5 12.9 Hct 36.2 38.2 Urine Opiates Screen NEGATIVE - Discharge information/Instructions Discharge Activity: Activity As Tolerated, No Lifting Over 10 Pounds, Pelvic Rest, No tub bath Discharge Diet: Regular Disposition: HOME, SELF-CARE Follow up with: [facility] in: 4, Weeks
--- NOTE | 2016-10-27 06:24 | L&D Current Admission ---
Current Admit Datetime Report Generated by CPN: 10/27/2016 06:00 ADMISSION INFORMATION Current Admit Date/Time: 10/24/2016 22:44 (10/24/2016 22:44:Geraldine Pedroza RN) Reason for Admission: Onset of Labor (10/24/2016 22:44:Geraldine Pedroza RN) Chief Complaint: Contractions (10/24/2016 22:30:Geraldine Pedroza RN) EGA per Dates: 40.5 (10/24/2016 22:44:QS system process) Method of Arrival: Wheelchair (10/24/2016 22:44:Geraldine Pedroza RN) Reason for Induction: Not Applicable (10/24/2016 22:44:Geraldine Pedroza RN) Records Available: Yes (10/24/2016 22:44:Geraldine Pedroza RN) General Admission Information: Reviewed (10/24/2016 22:44:Geraldine Pedroza RN) BELONGINGS/ADVANCED DIRECTIVES Comments Regarding Disposition: see belongings consent form (10/24/2016 22:44:Geraldine Pedroza RN) Advance Direct for Healthcare: No, and Wants No Information (10/24/2016 22:44:Geraldine Pedroza RN) Durable Power of Electric Relay Tester: No (10/24/2016 22:44:Geraldine Pedroza RN) Living Will: No (10/24/2016 22:44:Geraldine Pedroza RN) Organ Donor: Yes (10/24/2016 22:44:Geraldine Pedroza RN) Pt Rights Information Given: Yes (10/24/2016 22:44:Geraldine Pedroza RN) Pt Understands Pt Rights: Yes (10/24/2016 22:44:Geraldine Pedroza RN) LEARNING ASSESSMENT Knowledge Level: Understands L_D Process; Understands Care Activities; Understands Diagnosis (10/24/2016 22:44:Geraldine Pedroza RN) Barriers to Learning: None (10/24/2016 22:44:Geraldine Pedroza RN) Learning Readiness: Motivated (10/24/2016 22:44:Geraldine Pedroza RN) Learns Best By: 1 to 1 Instruction; Reading; Videos; Demonstration (10/24/2016 22:44:Geraldine Pedroza RN) Learning Needs: Labor and Delivery Process; Pain Management; Symptoms to Report; Treatment Plan; Medication; Diagnosis; Nutrition; Equipment; Care; Community Resources (10/24/2016 22:44:Geraldine Pedroza RN) DOMESTIC VIOLANCE SCREENING Dom Viol Threatened/Hurt: No (10/24/2016 22:44:Geraldine Pedroza RN) Hx of Abuse/Neglect past 2yrs: No (10/24/2016 22:44:Geraldine Pedroza RN) Feel Unsafe Going Home: No (10/24/2016 22:44:Geraldine Pedroza RN) Addt'l Observ Indicating Abuse: No (10/24/2016 22:44:Geraldine Pedroza RN) Reason Unable to Complete Screen: N/A, Screen Completed (10/24/2016 22:44:Geraldine Pedroza RN) Considered Personal Harm/Suicide: No (10/24/2016 22:44:Geraldine Pedroza RN) NUTRITIONAL/FUNCTIONAL SCREENING Problem with Appetite >5 Days: No (10/24/2016 22:44:Geraldine Pedroza RN) Chew/Swallow Difficulties: No (10/24/2016 22:44:Geraldine Pedroza RN) Inappropriate Wt Gain/Loss: No (10/24/2016 22:44:Geraldine Pedroza RN) Presence Skin Breakdown/Ulcer: No (10/24/2016 22:44:Geraldine Pedroza RN) Special Diet: No (10/24/2016 22:44:Geraldine Pedroza RN) Pt Requests Insurance Salesperson Visit: No (10/24/2016 22:44:Geraldine Pedroza RN) Hx of Any of the Following?: N/A (10/24/2016 22:44:Geraldine Pedroza RN) New Diagnosis of: N/A (10/24/2016 22:44:Geraldine Pedroza RN) Requires Assist w/Ambulation: No (10/24/2016 22:44:Geraldine Pedroza RN) Uses Assist Device to Ambulate: No (10/24/2016 22:44:Geraldine Pedroza RN) Pt Requires Help w/ADL's: No (10/24/2016 22:44:Geraldine Pedroza RN)
--- NOTE | 2016-10-27 06:24 | L&D General Admission ---
General Admit Datetime Report Generated by CPN: 10/27/2016 06:00 INFORMATION Patient Age: 21 (10/24/2016 22:00:QS system process) EDC: 10/19/2016 00:00 (10/24/2016 22:06:Prerna Day RN) : 3 (10/24/2016 22:06:Prerna Day RN) Para: 1 (10/24/2016 22:06:Prerna Day RN) Term: 1 (10/24/2016 22:06:Prerna Day RN) : 0 (10/24/2016 22:06:Prerna Day RN) Spontaneous Abortions: 1 (10/24/2016 22:06:Prerna Day RN) Induced Abortions: 0 (10/24/2016 22:06:Prerna Day RN) Livin (10/24/2016 22:06:Prerna Day RN) Baby, Number in Womb: 1 (10/24/2016 22:06:Prerna Day RN) CARE Primary Creative Consultant: [facility] (10/24/2016 22:06:Geraldine Pedroza, RN) Adequate Care: Yes (10/24/2016 22:06:Geraldine Pedroza, RN) Height (in): 58 (10/26/2016 09:47:QS system process) ALLERGIES Medication Allergy: No (10/24/2016 22:06:Geraldine Pedroza, RN) Medication Allergies: No Known Drug Allergies (10/24/2016) (10/24/2016 22:12:QS system process) Latex Allergy: No Latex Allergies (10/24/2016 22:06:Geraldine Pedroza, RN) Food Allergies: none (10/24/2016 22:06:Geraldine Pedroza, RN) Environmental Allergies: none (10/24/2016 22:06:Geraldine Pedroza, RN) COMMUNICATION Primary Language: Icelandic (10/24/2016 22:06:Geraldine Pedroza RN) Medical Tx Preferred Language: Icelandic (10/24/2016 22:06:Geraldine Pedroza RN) DEMOGRAPHICS Address: [address] [place] [id number] (10/24/2016 22:00:QS system process) Zipcode: [address] (10/24/2016 22:00:QS system process) Home (10/24/2016 22:00:QS system process) SSN: [id number] (10/24/2016 22:00:QS system process) Next of Kin Name: SANDY SEGURA (10/24/2016 22:00:QS system process) Next of Kin (10/24/2016 22:00:QS system process) Next of Kin Relationship: FA (10/24/2016 22:00:QS system process) Date of : 1995 (10/24/2016 22:00:QS system process) Marital Status: (10/24/2016 22:00:QS system process) Sex: Female (10/24/2016 22:00:QS system process) Race: (10/24/2016 22:00:QS system process) Ethnicity: Non- or (10/24/2016 22:00:QS system process) Yarsanism: None (10/24/2016 22:00:QS system process) DRUG AND ALCOHOL USE Alcohol: No (10/24/2016 22:06:Geraldine Pedroza RN) Cigarettes: Former Smoker. [id number] (10/24/2016 22:06:Geraldine Pedroza, RN) Marijuana: No (10/24/2016 22:06:Geraldine Pedroza RN) Cocaine: No (10/24/2016 22:06:Geraldine Pedroza, RN) Other Illicit Drugs: No (10/24/2016 22:06:Geraldine Pedroza, RN) VACCINE HISTORY Influenza Vaccine: Yes (10/24/2016 22:06:Geraldine Pedroza RN) Pneumococcal Vaccine: No (10/24/2016 22:06:Geraldine Pedroza RN) Tetanus Vaccine: Yes (10/24/2016 22:06:Geraldine Pedroza RN) Tdap Vaccine: Yes (10/24/2016 22:06:Geraldine Pedroza RN) Hepatitis B Vaccine: Yes (10/24/2016 22:06:Geraldine Pedroza RN) Motor Checker: [facility] (10/24/2016 22:06:Geraldine Pedroza RN) Feeding Preference: Breast (10/24/2016 22:06:Geraldine Pedroza RN) Benefit of Breast Feed Discussed: Yes (10/24/2016 22:06:Geraldine Pedroza RN) Circumcision: N/A (10/24/2016 22:06:Geraldine Pedroza RN) Classes Attended: No (10/24/2016 22:06:Geraldine Pedroza RN) Tubal Ligation: No (10/24/2016 22:06:Geraldine Pedroza RN) Tubal Authorization Signed: N/A (10/24/2016 22:06:Geraldine Pedroza RN) Consent: N/A (10/24/2016 22:06:Geraldine Pedroza RN) Consent Signed: N/A (10/24/2016 22:06:Geraldine Pedroza RN) Pain Management Plans: Epidural (10/24/2016 22:06:Geraldine Pedroza RN) Plans for Labor and Delivery: None (10/24/2016 22:06:Geraldine Pedroza RN) Support Person: Declan Bond (10/24/2016 22:06:Geraldine Pedroza RN) Support Person Relationship: (10/24/2016 22:06:Geraldine Pedroza RN) Cultural/Spritual Practice: No (10/24/2016 22:06:Geraldine Pedroza RN) Spir/Cult Dietary Needs: No (10/24/2016 22:06:Geraldine Pedroza RN) LIVING SITUATION/DISCHARGE PLAN Living Arrangements: House (10/24/2016 22:06:Geraldine Pedroza RN) Adequate Access to:: Electric; Heat; Refrigeration; Plumbing/Running water; Phone; Transportation (10/24/2016 22:06:Geraldine Pedroza RN) WIC Program: Yes (10/24/2016 22:06:Geraldine Pedroza RN) Discharge Bridge Club Manager Person: Declan (10/24/2016 22:06:Geraldine Pedroza RN) Person to Help after Discharge: Declan (10/24/2016 22:06:Geraldine Pedroza RN) Currently Using Commun Resources: No (10/24/2016 22:06:Geraldine Pedroza RN) Outside Agency/[place] Upholsterer: No (10/24/2016 22:06:Geraldine Pedroza RN) Car Seat for Discharge: Yes (10/24/2016 22:06:Geraldine Pedroza RN) Adoption Requested: No (10/24/2016 22:06:Geraldine Pedroza RN) Pt Contact w/infant Post : N/A (10/24/2016 22:06:Geraldine Pedroza RN) LABS Blood Type: AB Positive (10/24/2016 22:06:Prerna Day RN) Antibody Screen: negative (10/24/2016 22:06:Prerna Day RN) Hemoglobin: 12.9 (10/25/2016 06:51:QS system process) Hematocrit: 38.2 (10/25/2016 06:51:QS system process) MCV: 91 (10/25/2016 06:51:QS system process) Group Beta Strep: negative (10/24/2016 22:06:Prerna Day RN) Gonorrhea: Negative (10/24/2016 22:06:Prerna Day RN) Chlamydia: Negative (10/24/2016 22:06:Prerna Day RN) RPR/VDRL: Nonreactive (10/24/2016 22:06:Prerna Day RN) HIV Results: non-reactive (10/24/2016 22:06:Prerna Day RN) Hepatitis B: Negative (10/24/2016 22:06:Prerna Day RN) Rubella: Immune (10/24/2016 22:06:Prerna Day RN) OB/PREVIOUS HISTORY Previous Procedures: Ultrasound; NST (10/24/2016 22:06:Geraldine Pedroza RN) Current Procedures: Ultrasound; NST (10/24/2016 22:06:Geraldine Pedroza RN) History of Previous : No (10/24/2016 22:06:Geraldine Pedroza RN) History of Gestational Diabetes: No (10/24/2016 22:06:Geraldine Pedroza RN) History of PIH: No (10/24/2016 22:06:Geraldine Pedroza RN) History of Incompetent Cervix: No (10/24/2016 22:06:Geraldine Pedroza RN) History of Placenta Previa/Abrup: No (10/24/2016 22:06:Geraldine Pedroza RN) History of Macrosomia: No (10/24/2016 22:06:Geraldine Pedroza RN) History of IUGR: No (10/24/2016 22:06:Geraldine Pedroza RN) History of Hemorrhage: No (10/24/2016 22:06:Geraldine Pedroza RN) History of Loss/Stillborn: No (10/24/2016 22:06:Geraldine Pedroza RN) History of : No (10/24/2016 22:06:Geraldine Pedroza RN) History of D (Rh) Sensitization: No (10/24/2016 22:06:Geraldine Pedroza RN) History Recurrent Loss/Stillborn: No (10/24/2016 22:06:Geraldine Pedroza RN) History Depression/PP Depression: No (10/24/2016 22:06:Geraldine Pedroza RN) History of Uterine Anomaly/SYL: No (10/24/2016 22:06:Geraldine Pedroza RN) History of Infertility: No (10/24/2016 22:06:Geraldine Pedroza RN) History of ART Treatment: No (10/24/2016 22:06:Geraldine Pedroza RN) History of SYL: No (10/24/2016 22:06:Geraldine Pedroza RN) Comments Obstetrical History: G1: SAB 2013 G2: Female 2015 7 pounds 6 ounces G3: Current (10/24/2016 22:06:Geraldine Pedroza RN) MEDICAL HISTORY Med Hx Diabetes: No (10/24/2016 22:06:Geraldine Pedroza RN) Med Hx Hypertension: No (10/24/2016 22:06:Geraldine Pedroza RN) Med Hx Heart Disease: No (10/24/2016 22:06:Geraldine Pedroza RN) Med Hx Autoimmune Disorder: No (10/24/2016 22:06:Geraldine Pedroza RN) Med Hx Kidney Disease/UTI: No (10/24/2016 22:06:Geraldine Pedroza RN) Med Hx Neurologic/Epilepsy: No (10/24/2016 22:06:Geraldine Pedroza RN) Med Hx Psychiatric Disorders: No (10/24/2016 22:06:Geraldine Pedroza RN) Med Hx Hepatitis/Liver Disease: No (10/24/2016 22:06:Geraldine Pedroza RN) Med Hx Varicosities/Phlebitis: No (10/24/2016 22:06:Geraldine Pedroza RN) Med Hx Thyroid Dysfunction: Yes (10/24/2016 22:06:Prerna Day RN) Med Hx Trauma/Violence: No (10/24/2016 22:06:Geraldine Pedroza RN) Med Hx Blood Transfusion: No (10/24/2016 22:06:Geraldine Pedroza RN) Med Hx Pulmonary (Asthma,TB): No (10/24/2016 22:06:Geraldine Pedroza RN) Med Hx Breast: No (10/24/2016 22:06:Geraldine Pedroza RN) Med Hx SPORTS EQUIPMENT RACKER Surgery: No (10/24/2016 22:06:Geraldine Pedroza RN) Med Hx Hospitalization/Surgery: Yes (10/24/2016 22:06:Geraldine Pedroza RN) Med Hx Anesthetic Complications: No (10/24/2016 22:06:Geraldine Pedroza RN) Med Hx Abnormal Pap Smear: No (10/24/2016 22:06:Geraldine Pedroza RN) Other Medical Diseases: No (10/24/2016 22:06:Geraldine Pedroza RN) Med Hx Significant Family Hx: No (10/24/2016 22:06:Geraldine Pedroza RN) Details of Med/Surg Hx: On synthroid hypothyroidism, childbirth (10/24/2016 22:06:Geraldine Pedroza RN) INFECTIOUS HISTORY Inf Hx Gonorrhea: No (10/24/2016 22:06:Geraldine Pedroza RN) Inf Hx Chlamydia: No (10/24/2016 22:06:Geraldine Pedroza RN) Inf Hx Syphilis: No (10/24/2016 22:06:Geraldine Pedroza RN) Inf Hx HIV/AIDS: No (10/24/2016 22:06:Geraldine Pedroza RN) Inf Hx Human Papilloma Virus: No (10/24/2016 22:06:Geraldine Pedroza RN) Inf Hx Pt/Partner Genital Herpes: No (10/24/2016 22:06:Geraldine Pedroza RN) Inf Hx Tuberculosis/Exposure: No (10/24/2016 22:06:Geraldine Pedroza RN) Inf Hx Hepatitis B,C: No (10/24/2016 22:06:Geraldine Pedroza RN) Inf Hx Rash or Viral Illness: No (10/24/2016 22:06:Geraldine Pedroza RN) GENETIC HISTORY Gen Hx Age >=35 at PATRICIA: No (10/24/2016 22:06:Geraldine Pedroza RN) Gen Hx Thalassemia: No (10/24/2016 22:06:Geraldine Pedroza RN) Gen Hx Congenital Heart Defect: No (10/24/2016 22:06:Geraldine Pedroza RN) Gen Hx Neural Tube Defect: No (10/24/2016 22:06:Geraldine Pedroza RN) Gen Hx Down's Syndrome: No (10/24/2016 22:06:Geraldine Pedroza RN) Gen Hx Carmine-Sachs: No (10/24/2016 22:06:Geraldine Pedroza RN) Gen Hx Darlene: No (10/24/2016 22:06:Geraldine Pedroza RN) Gen Hx Familial Dysautonomia: No (10/24/2016 22:06:Geraldine Pedroza RN) Gen Hx Sickle Cell Disease/Trait: No (10/24/2016 22:06:Geraldine Pedroza RN) Gen Hx Hemophilia/Blood Disorder: No (10/24/2016 22:06:Geraldine Pedroza RN) Gen Hx Muscular Dystrophy: No (10/24/2016 22:06:Geraldine Pedroza RN) Gen Hx Cystic Fibrosis: No (10/24/2016 22:06:Geraldine Pedroza RN) Gen Hx Huntingtons Chorea: No (10/24/2016 22:06:Geraldine Pedroza RN) Gen Hx Mental Retardation/Autism: No (10/24/2016 22:06:Geraldine Pedroza RN) Gen Hx Tested for Fragile X: No (10/24/2016 22:06:Geraldine Pedroza RN) Gen Hx Other Inher/Chromosomal: No (10/24/2016 22:06:Geraldine Pedroza RN) Gen Hx Maternal Metabolic DO: No (10/24/2016 22:06:Geraldine Pedroza RN) Gen Hx Pt Father or FOB Defect: No (10/24/2016 22:06:Geraldine Pedroza RN) Gen Hx Other Genetic History: No (10/24/2016 22:06:Geraldine Pedroza RN) Gen Hx Drugs/Meds since LMP: No (10/24/2016 22:06:Geraldine Pedroza RN)
--- NOTE | 2016-10-28 06:23 | L&D Current Admission ---
Current Admit Datetime Report Generated by CPN: 10/28/2016 06:00 ADMISSION INFORMATION Current Admit Date/Time: 10/24/2016 22:44 (10/24/2016 22:44:Geraldine Pedroza RN) Reason for Admission: Onset of Labor (10/24/2016 22:44:Geraldine Pedroza RN) Chief Complaint: Contractions (10/24/2016 22:30:Geraldine Pedroza RN) EGA per Dates: 40.5 (10/24/2016 22:44:QS system process) Method of Arrival: Wheelchair (10/24/2016 22:44:Geraldine Pedroza RN) Reason for Induction: Not Applicable (10/24/2016 22:44:Geraldine Pedroza RN) Records Available: Yes (10/24/2016 22:44:Geraldine Pedroza RN) General Admission Information: Reviewed (10/24/2016 22:44:Geraldine Pedroza RN) BELONGINGS/ADVANCED DIRECTIVES Comments Regarding Disposition: see belongings consent form (10/24/2016 22:44:Geraldine Pedroza RN) Advance Direct for Healthcare: No, and Wants No Information (10/24/2016 22:44:Geraldine Pedroza RN) Durable Power of Infrastructure Engineer: No (10/24/2016 22:44:Geraldine Pedroza RN) Living Will: No (10/24/2016 22:44:Geraldine Pedroza RN) Organ Donor: Yes (10/24/2016 22:44:Geraldine Pedroza RN) Pt Rights Information Given: Yes (10/24/2016 22:44:Geraldine Pedroza RN) Pt Understands Pt Rights: Yes (10/24/2016 22:44:Geraldine Pedroza RN) LEARNING ASSESSMENT Knowledge Level: Understands L_D Process; Understands Care Activities; Understands Diagnosis (10/24/2016 22:44:Geraldine Pedroza RN) Barriers to Learning: None (10/24/2016 22:44:Geraldine Pedroza RN) Learning Readiness: Motivated (10/24/2016 22:44:Geraldine Pedroza RN) Learns Best By: 1 to 1 Instruction; Reading; Videos; Demonstration (10/24/2016 22:44:Geraldine Pedroza RN) Learning Needs: Labor and Delivery Process; Pain Management; Symptoms to Report; Treatment Plan; Medication; Diagnosis; Nutrition; Equipment; Care; Community Resources (10/24/2016 22:44:Geraldine Pedroza RN) DOMESTIC VIOLANCE SCREENING Dom Viol Threatened/Hurt: No (10/24/2016 22:44:Geraldine Pedroza RN) Hx of Abuse/Neglect past 2yrs: No (10/24/2016 22:44:Geraldine Pedroza RN) Feel Unsafe Going Home: No (10/24/2016 22:44:Geraldine Pedroza RN) Addt'l Observ Indicating Abuse: No (10/24/2016 22:44:Geraldine Pedroza RN) Reason Unable to Complete Screen: N/A, Screen Completed (10/24/2016 22:44:Geraldine Pedroza RN) Considered Personal Harm/Suicide: No (10/24/2016 22:44:Geraldine Pedroza RN) NUTRITIONAL/FUNCTIONAL SCREENING Problem with Appetite >5 Days: No (10/24/2016 22:44:Geraldine Pedroza RN) Chew/Swallow Difficulties: No (10/24/2016 22:44:Geraldine Pedroza RN) Inappropriate Wt Gain/Loss: No (10/24/2016 22:44:Geraldine Pedroza RN) Presence Skin Breakdown/Ulcer: No (10/24/2016 22:44:Geraldine Pedroza RN) Special Diet: No (10/24/2016 22:44:Geraldine Pedroza RN) Pt Requests Embossograph Operator Visit: No (10/24/2016 22:44:Geraldine Pedroza RN) Hx of Any of the Following?: N/A (10/24/2016 22:44:Geraldine Pedroza RN) New Diagnosis of: N/A (10/24/2016 22:44:Geraldine ePdroza RN) Requires Assist w/Ambulation: No (10/24/2016 22:44:Geraldine Pedroza RN) Uses Assist Device to Ambulate: No (10/24/2016 22:44:Geraldine Pedroza RN) Pt Requires Help w/ADL's: No (10/24/2016 22:44:Geraldine Pedroza RN)
--- NOTE | 2016-10-28 06:23 | L&D General Admission ---
General Admit Datetime Report Generated by CPN: 10/28/2016 06:00 INFORMATION Patient Age: 21 (10/24/2016 22:00:QS system process) EDC: 10/19/2016 00:00 (10/24/2016 22:06:Prerna Day RN) : 3 (10/24/2016 22:06:Prerna Day RN) Para: 1 (10/24/2016 22:06:Prerna Day RN) Term: 1 (10/24/2016 22:06:Prerna Day RN) : 0 (10/24/2016 22:06:Prerna Day RN) Spontaneous Abortions: 1 (10/24/2016 22:06:Prerna Day RN) Induced Abortions: 0 (10/24/2016 22:06:Prerna Day RN) Livin (10/24/2016 22:06:Prerna Day RN) Baby, Number in Womb: 1 (10/24/2016 22:06:Prerna Day RN) CARE Primary Brim Pouncer: [employer] (10/24/2016 22:06:Geraldine Pedroza, RN) Adequate Care: Yes (10/24/2016 22:06:Geraldine Pedroza, RN) Height (in): 58 (10/26/2016 09:47:QS system process) ALLERGIES Medication Allergy: No (10/24/2016 22:06:Geraldine Pedroza, RN) Medication Allergies: No Known Drug Allergies (10/24/2016) (10/24/2016 22:12:QS system process) Latex Allergy: No Latex Allergies (10/24/2016 22:06:Geraldine Pedroza, RN) Food Allergies: none (10/24/2016 22:06:Geraldine Pedroza, RN) Environmental Allergies: none (10/24/2016 22:06:Geraldine Pedroza, RN) COMMUNICATION Primary Language: Tajik (10/24/2016 22:06:Geraldine Pedroza RN) Medical Tx Preferred Language: Tajik (10/24/2016 22:06:Geraldine Pedroza RN) DEMOGRAPHICS Address: [address] [place] [id number] (10/24/2016 22:00:QS system process) Zipcode: [address] (10/24/2016 22:00:QS system process) Home (10/24/2016 22:00:QS system process) SSN: [id number] (10/24/2016 22:00:QS system process) Next of Kin Name: SANDY SEGURA (10/24/2016 22:00:QS system process) Next of Kin (10/24/2016 22:00:QS system process) Next of Kin Relationship: FA (10/24/2016 22:00:QS system process) Date of : 1995 (10/24/2016 22:00:QS system process) Marital Status: (10/24/2016 22:00:QS system process) Sex: Female (10/24/2016 22:00:QS system process) Race: (10/24/2016 22:00:QS system process) Ethnicity: Non- or (10/24/2016 22:00:QS system process) Confucianist: None (10/24/2016 22:00:QS system process) DRUG AND ALCOHOL USE Alcohol: No (10/24/2016 22:06:Geraldine Pedroza RN) Cigarettes: Former Smoker. [id number] (10/24/2016 22:06:Geraldine Pedroza, RN) Marijuana: No (10/24/2016 22:06:Geraldine Pedroza RN) Cocaine: No (10/24/2016 22:06:Geraldine Pedroza, RN) Other Illicit Drugs: No (10/24/2016 22:06:Geraldine Pedroza, RN) VACCINE HISTORY Influenza Vaccine: Yes (10/24/2016 22:06:Geraldine Pedroza RN) Pneumococcal Vaccine: No (10/24/2016 22:06:Geraldine Pedroza RN) Tetanus Vaccine: Yes (10/24/2016 22:06:Geraldine Pedroza RN) Tdap Vaccine: Yes (10/24/2016 22:06:Geraldine Pedroza RN) Hepatitis B Vaccine: Yes (10/24/2016 22:06:Geraldine Pedroza RN) Driver: [facility] (10/24/2016 22:06:Geraldine Pedroza RN) Feeding Preference: Breast (10/24/2016 22:06:Geraldine Pedroza RN) Benefit of Breast Feed Discussed: Yes (10/24/2016 22:06:Geraldine Pedroza RN) Circumcision: N/A (10/24/2016 22:06:Geraldine Pedroza RN) Classes Attended: No (10/24/2016 22:06:Geraldine Pedroza RN) Tubal Ligation: No (10/24/2016 22:06:Geraldine Pedroza RN) Tubal Authorization Signed: N/A (10/24/2016 22:06:Geraldine Pedroza RN) Consent: N/A (10/24/2016 22:06:Geraldine Pedroza RN) Consent Signed: N/A (10/24/2016 22:06:Geraldine Pedroza RN) Pain Management Plans: Epidural (10/24/2016 22:06:Geraldine Pedroza RN) Plans for Labor and Delivery: None (10/24/2016 22:06:Geraldine Pedroza RN) Support Person: Declan Bond (10/24/2016 22:06:Geraldine Pedroza RN) Support Person Relationship: (10/24/2016 22:06:Geraldine Pedroza RN) Cultural/Spritual Practice: No (10/24/2016 22:06:Geraldine Pedroza RN) Spir/Cult Dietary Needs: No (10/24/2016 22:06:Geraldine Pedroza RN) LIVING SITUATION/DISCHARGE PLAN Living Arrangements: House (10/24/2016 22:06:Geraldine Pedroza RN) Adequate Access to:: Electric; Heat; Refrigeration; Plumbing/Running water; Phone; Transportation (10/24/2016 22:06:Geraldine Pedroza RN) WIC Program: Yes (10/24/2016 22:06:Geraldine Pedroza RN) Discharge Machine Stamper Person: Declan (10/24/2016 22:06:Geraldine Pedroza RN) Person to Help after Discharge: Declan (10/24/2016 22:06:Geraldine Pedroza RN) Currently Using Commun Resources: No (10/24/2016 22:06:Geraldine Pedroza RN) Outside Agency/Cephalometric Technician: No (10/24/2016 22:06:Geraldine Pedroza RN) Car Seat for Discharge: Yes (10/24/2016 22:06:Geraldine Pedroza RN) Adoption Requested: No (10/24/2016 22:06:Geraldine Pedroza RN) Pt Contact w/infant Post : N/A (10/24/2016 22:06:Geraldine Pedroza RN) LABS Blood Type: AB Positive (10/24/2016 22:06:Prerna Day RN) Antibody Screen: negative (10/24/2016 22:06:Prerna Day RN) Hemoglobin: 12.9 (10/25/2016 06:51:QS system process) Hematocrit: 38.2 (10/25/2016 06:51:QS system process) MCV: 91 (10/25/2016 06:51:QS system process) Group Beta Strep: negative (10/24/2016 22:06:Prerna Day RN) Gonorrhea: Negative (10/24/2016 22:06:Prerna Day RN) Chlamydia: Negative (10/24/2016 22:06:Prerna Day RN) RPR/VDRL: Nonreactive (10/24/2016 22:06:Prerna Day RN) HIV Results: non-reactive (10/24/2016 22:06:Prenra Day RN) Hepatitis B: Negative (10/24/2016 22:06:Prerna Day RN) Rubella: Immune (10/24/2016 22:06:Prerna Day RN) OB/PREVIOUS HISTORY Previous Procedures: Ultrasound; NST (10/24/2016 22:06:Geraldine Pedroza RN) Current Procedures: Ultrasound; NST (10/24/2016 22:06:Geraldine Pedroza RN) History of Previous : No (10/24/2016 22:06:Geraldine Pedroza RN) History of Gestational Diabetes: No (10/24/2016 22:06:Geraldine Pedroza RN) History of PIH: No (10/24/2016 22:06:Geraldine Pedroza RN) History of Incompetent Cervix: No (10/24/2016 22:06:Geraldine Pedroza RN) History of Placenta Previa/Abrup: No (10/24/2016 22:06:Geraldine Pedroza RN) History of Macrosomia: No (10/24/2016 22:06:Geraldine Pedroza RN) History of IUGR: No (10/24/2016 22:06:Geraldine Pedroza RN) History of Hemorrhage: No (10/24/2016 22:06:Geraldine Pedroza RN) History of Loss/Stillborn: No (10/24/2016 22:06:Geraldine Pedroza RN) History of : No (10/24/2016 22:06:Geraldine Pedroza RN) History of D (Rh) Sensitization: No (10/24/2016 22:06:Geraldine Pedroza RN) History Recurrent Loss/Stillborn: No (10/24/2016 22:06:Geraldine Pedroza RN) History Depression/PP Depression: No (10/24/2016 22:06:Geraldine Pedroza RN) History of Uterine Anomaly/SYL: No (10/24/2016 22:06:Geraldine Pedroza RN) History of Infertility: No (10/24/2016 22:06:Geraldine Pedroza RN) History of ART Treatment: No (10/24/2016 22:06:Geraldine Pedroza RN) History of SYL: No (10/24/2016 22:06:Geraldine Pedroza RN) Comments Obstetrical History: G1: SAB 2013 G2: Female 2015 7 pounds 6 ounces G3: Current (10/24/2016 22:06:Geraldine Pedroza RN) MEDICAL HISTORY Med Hx Diabetes: No (10/24/2016 22:06:Geraldine Pedroza RN) Med Hx Hypertension: No (10/24/2016 22:06:Geraldine Pedroza RN) Med Hx Heart Disease: No (10/24/2016 22:06:Geraldine Pedroza RN) Med Hx Autoimmune Disorder: No (10/24/2016 22:06:Geraldine Pedroza RN) Med Hx Kidney Disease/UTI: No (10/24/2016 22:06:Geraldine Pedroza RN) Med Hx Neurologic/Epilepsy: No (10/24/2016 22:06:Geraldine Pedroza RN) Med Hx Psychiatric Disorders: No (10/24/2016 22:06:Geraldine Pedroza RN) Med Hx Hepatitis/Liver Disease: No (10/24/2016 22:06:Geraldine Pedroza RN) Med Hx Varicosities/Phlebitis: No (10/24/2016 22:06:Geraldine Pedroza RN) Med Hx Thyroid Dysfunction: Yes (10/24/2016 22:06:Prerna Day RN) Med Hx Trauma/Violence: No (10/24/2016 22:06:Geraldine Pedroza RN) Med Hx Blood Transfusion: No (10/24/2016 22:06:Geraldine Pedroza RN) Med Hx Pulmonary (Asthma,TB): No (10/24/2016 22:06:Geraldine Pedroza RN) Med Hx Breast: No (10/24/2016 22:06:Geraldine Pedroza RN) Med Hx TWISTING PRESS OPERATOR Surgery: No (10/24/2016 22:06:Geraldine Pedroza RN) Med Hx Hospitalization/Surgery: Yes (10/24/2016 22:06:Geraldine Pedroza RN) Med Hx Anesthetic Complications: No (10/24/2016 22:06:Geraldine Pedroza RN) Med Hx Abnormal Pap Smear: No (10/24/2016 22:06:Geraldine Pedroza RN) Other Medical Diseases: No (10/24/2016 22:06:Geraldine Pedroza RN) Med Hx Significant Family Hx: No (10/24/2016 22:06:Geraldine Pedroza RN) Details of Med/Surg Hx: On synthroid hypothyroidism, childbirth (10/24/2016 22:06:Geraldine Pedroza RN) INFECTIOUS HISTORY Inf Hx Gonorrhea: No (10/24/2016 22:06:Geraldine Pedroza RN) Inf Hx Chlamydia: No (10/24/2016 22:06:Geraldine Pedroza RN) Inf Hx Syphilis: No (10/24/2016 22:06:Geraldine Pedroza RN) Inf Hx HIV/AIDS: No (10/24/2016 22:06:Geraldine Pedroza RN) Inf Hx Human Papilloma Virus: No (10/24/2016 22:06:Geraldine Pedroza RN) Inf Hx Pt/Partner Genital Herpes: No (10/24/2016 22:06:Geraldine Pedroza RN) Inf Hx Tuberculosis/Exposure: No (10/24/2016 22:06:Geraldine Pedroza RN) Inf Hx Hepatitis B,C: No (10/24/2016 22:06:Geraldine Pedroza RN) Inf Hx Rash or Viral Illness: No (10/24/2016 22:06:Geraldine Pedroza RN) GENETIC HISTORY Gen Hx Age >=35 at PATRICIA: No (10/24/2016 22:06:Geraldine Pedroza RN) Gen Hx Thalassemia: No (10/24/2016 22:06:Geraldine Pedroza RN) Gen Hx Congenital Heart Defect: No (10/24/2016 22:06:Geraldine Pedroza RN) Gen Hx Neural Tube Defect: No (10/24/2016 22:06:Geraldine Pedroza RN) Gen Hx Down's Syndrome: No (10/24/2016 22:06:Geraldine Pedroza RN) Gen Hx Carmine-Sachs: No (10/24/2016 22:06:Geraldine Pedroza RN) Gen Hx Darlene: No (10/24/2016 22:06:Geraldine Pedroza RN) Gen Hx Familial Dysautonomia: No (10/24/2016 22:06:Geraldine Pedroza RN) Gen Hx Sickle Cell Disease/Trait: No (10/24/2016 22:06:Geraldine Pedroza RN) Gen Hx Hemophilia/Blood Disorder: No (10/24/2016 22:06:Geraldine Pedroza RN) Gen Hx Muscular Dystrophy: No (10/24/2016 22:06:Geraldine Pedroza RN) Gen Hx Cystic Fibrosis: No (10/24/2016 22:06:Geraldine Pedroza RN) Gen Hx Huntingtons Chorea: No (10/24/2016 22:06:Geraldine Pedroza RN) Gen Hx Mental Retardation/Autism: No (10/24/2016 22:06:Geraldine Pedroza RN) Gen Hx Tested for Fragile X: No (10/24/2016 22:06:Geraldine Pedroza RN) Gen Hx Other Inher/Chromosomal: No (10/24/2016 22:06:Geraldine Pedroza RN) Gen Hx Maternal Metabolic DO: No (10/24/2016 22:06:Geraldine Pedroza RN) Gen Hx Pt Father or FOB Defect: No (10/24/2016 22:06:Geraldine Pedroza RN) Gen Hx Other Genetic History: No (10/24/2016 22:06:Geraldine Pedroza RN) Gen Hx Drugs/Meds since LMP: No (10/24/2016 22:06:Geraldine Pedroza RN)
--- NOTE | 2016-10-29 06:23 | L&D General Admission ---
General Admit Datetime Report Generated by CPN: 10/29/2016 06:00 INFORMATION Patient Age: 21 (10/24/2016 22:00:QS system process) EDC: 10/19/2016 00:00 (10/24/2016 22:06:Prerna Day RN) : 3 (10/24/2016 22:06:Prerna Day RN) Para: 1 (10/24/2016 22:06:Prerna Day RN) Term: 1 (10/24/2016 22:06:Prerna Day RN) : 0 (10/24/2016 22:06:Prerna Day RN) Spontaneous Abortions: 1 (10/24/2016 22:06:Prerna Day RN) Induced Abortions: 0 (10/24/2016 22:06:Prerna Day RN) Livin (10/24/2016 22:06:Prerna Day RN) Baby, Number in Womb: 1 (10/24/2016 22:06:Prerna Day RN) CARE Primary Metal Tank Builder: [employer] (10/24/2016 22:06:Geraldine Pedroza, RN) Adequate Care: Yes (10/24/2016 22:06:Geraldine Pedroza, RN) Height (in): 58 (10/26/2016 09:47:QS system process) ALLERGIES Medication Allergy: No (10/24/2016 22:06:Geraldine Pedroza, RN) Medication Allergies: No Known Drug Allergies (10/24/2016) (10/24/2016 22:12:QS system process) Latex Allergy: No Latex Allergies (10/24/2016 22:06:Geraldine Pedroza, RN) Food Allergies: none (10/24/2016 22:06:Geraldine Pedroza, RN) Environmental Allergies: none (10/24/2016 22:06:Geraldine Pedroza, RN) COMMUNICATION Primary Language: Kazakh (10/24/2016 22:06:Geraldine Pedroza RN) Medical Tx Preferred Language: Kazakh (10/24/2016 22:06:Geraldine Pedroza RN) DEMOGRAPHICS Address: [address] [place] [id number] (10/24/2016 22:00:QS system process) Zipcode: [address] (10/24/2016 22:00:QS system process) Home (10/24/2016 22:00:QS system process) SSN: [id number] (10/24/2016 22:00:QS system process) Next of Kin Name: SANDY SEGURA (10/24/2016 22:00:QS system process) Next of Kin (10/24/2016 22:00:QS system process) Next of Kin Relationship: FA (10/24/2016 22:00:QS system process) Date of : 1995 (10/24/2016 22:00:QS system process) Marital Status: (10/24/2016 22:00:QS system process) Sex: Female (10/24/2016 22:00:QS system process) Race: (10/24/2016 22:00:QS system process) Ethnicity: Non- or (10/24/2016 22:00:QS system process) Tenriism: None (10/24/2016 22:00:QS system process) DRUG AND ALCOHOL USE Alcohol: No (10/24/2016 22:06:Geraldine Pedroza RN) Cigarettes: Former Smoker. [id number] (10/24/2016 22:06:Geraldine Pedroza, RN) Marijuana: No (10/24/2016 22:06:Geraldine Pedroza RN) Cocaine: No (10/24/2016 22:06:Geraldine Pedroza, RN) Other Illicit Drugs: No (10/24/2016 22:06:Geraldine Pedroza, RN) VACCINE HISTORY Influenza Vaccine: Yes (10/24/2016 22:06:Geraldine Pedroza RN) Pneumococcal Vaccine: No (10/24/2016 22:06:Geraldine Pedroza RN) Tetanus Vaccine: Yes (10/24/2016 22:06:Geraldine Pedroza RN) Tdap Vaccine: Yes (10/24/2016 22:06:Geraldine Pedroza RN) Hepatitis B Vaccine: Yes (10/24/2016 22:06:Geraldine Pedroza RN) Associate Director Data & Analytics: [facility] (10/24/2016 22:06:Geraldine Pedroza RN) Feeding Preference: Breast (10/24/2016 22:06:Geraldine Pedroza RN) Benefit of Breast Feed Discussed: Yes (10/24/2016 22:06:Geraldine Pedroza RN) Circumcision: N/A (10/24/2016 22:06:Geraldine Pedroza RN) Classes Attended: No (10/24/2016 22:06:Geraldine Pedroza RN) Tubal Ligation: No (10/24/2016 22:06:Geraldine Pedroza RN) Tubal Authorization Signed: N/A (10/24/2016 22:06:Geraldine Pedroza RN) Consent: N/A (10/24/2016 22:06:Geraldine Pedroza RN) Consent Signed: N/A (10/24/2016 22:06:Geraldine Pedroza RN) Pain Management Plans: Epidural (10/24/2016 22:06:Geraldine Pedroza RN) Plans for Labor and Delivery: None (10/24/2016 22:06:Geraldine Pedroza RN) Support Person: Declan Bond (10/24/2016 22:06:Geraldine Pedroza RN) Support Person Relationship: (10/24/2016 22:06:Geraldine Pedroza RN) Cultural/Spritual Practice: No (10/24/2016 22:06:Geraldine Pedroza RN) Spir/Cult Dietary Needs: No (10/24/2016 22:06:Geraldine Pedroza RN) LIVING SITUATION/DISCHARGE PLAN Living Arrangements: House (10/24/2016 22:06:Geraldine Pedroza RN) Adequate Access to:: Electric; Heat; Refrigeration; Plumbing/Running water; Phone; Transportation (10/24/2016 22:06:Geraldine Pedroza RN) WIC Program: Yes (10/24/2016 22:06:Geraldine Pedroza RN) Discharge Shoe Worker Person: Declan (10/24/2016 22:06:Geraldine Pedroza RN) Person to Help after Discharge: Declan (10/24/2016 22:06:Geraldine Pedroza RN) Currently Using Commun Resources: No (10/24/2016 22:06:Geraldine Pedroza RN) Outside Agency/Driver Recruiter: No (10/24/2016 22:06:Geraldine Pedroza RN) Car Seat for Discharge: Yes (10/24/2016 22:06:Geraldine Pedroza RN) Adoption Requested: No (10/24/2016 22:06:Geraldine Pedroza RN) Pt Contact w/infant Post : N/A (10/24/2016 22:06:Geraldine Pedroza RN) LABS Blood Type: AB Positive (10/24/2016 22:06:Prerna Day RN) Antibody Screen: negative (10/24/2016 22:06:Prerna Day RN) Hemoglobin: 12.9 (10/25/2016 06:51:QS system process) Hematocrit: 38.2 (10/25/2016 06:51:QS system process) MCV: 91 (10/25/2016 06:51:QS system process) Group Beta Strep: negative (10/24/2016 22:06:Prerna Day RN) Gonorrhea: Negative (10/24/2016 22:06:Prerna Day RN) Chlamydia: Negative (10/24/2016 22:06:Prerna Day RN) RPR/VDRL: Nonreactive (10/24/2016 22:06:Prerna Day RN) HIV Results: non-reactive (10/24/2016 22:06:Prerna Day RN) Hepatitis B: Negative (10/24/2016 22:06:Prerna Day RN) Rubella: Immune (10/24/2016 22:06:Prerna Day RN) OB/PREVIOUS HISTORY Previous Procedures: Ultrasound; NST (10/24/2016 22:06:Geraldine Pedroza RN) Current Procedures: Ultrasound; NST (10/24/2016 22:06:Geraldine Pedroza RN) History of Previous : No (10/24/2016 22:06:Geraldine Pedroza RN) History of Gestational Diabetes: No (10/24/2016 22:06:Geraldine Pedroza RN) History of PIH: No (10/24/2016 22:06:Geraldine Pedroza RN) History of Incompetent Cervix: No (10/24/2016 22:06:Geraldine Pedroza RN) History of Placenta Previa/Abrup: No (10/24/2016 22:06:Geraldine Pedroza RN) History of Macrosomia: No (10/24/2016 22:06:Geraldine Pedroza RN) History of IUGR: No (10/24/2016 22:06:Geraldine Pedroza RN) History of Hemorrhage: No (10/24/2016 22:06:Geraldine Pedroza RN) History of Loss/Stillborn: No (10/24/2016 22:06:Geraldine Pedroza RN) History of : No (10/24/2016 22:06:Geraldine Pedroza RN) History of D (Rh) Sensitization: No (10/24/2016 22:06:Geraldine Pedroza RN) History Recurrent Loss/Stillborn: No (10/24/2016 22:06:Geraldine Pedroza RN) History Depression/PP Depression: No (10/24/2016 22:06:Geraldine Pedroza RN) History of Uterine Anomaly/SYL: No (10/24/2016 22:06:Geraldine Pedroza RN) History of Infertility: No (10/24/2016 22:06:Geraldine Pedroza RN) History of ART Treatment: No (10/24/2016 22:06:Geraldine Pedroza RN) History of SYL: No (10/24/2016 22:06:Geraldine Pedroza RN) Comments Obstetrical History: G1: SAB 2013 G2: Female 2015 7 pounds 6 ounces G3: Current (10/24/2016 22:06:Geraldine Pedroza RN) MEDICAL HISTORY Med Hx Diabetes: No (10/24/2016 22:06:Geraldine Pedroza RN) Med Hx Hypertension: No (10/24/2016 22:06:Geraldine Pedroza RN) Med Hx Heart Disease: No (10/24/2016 22:06:Geraldine Pedroza RN) Med Hx Autoimmune Disorder: No (10/24/2016 22:06:Geraldine Pedroza RN) Med Hx Kidney Disease/UTI: No (10/24/2016 22:06:Geraldine Pedroza RN) Med Hx Neurologic/Epilepsy: No (10/24/2016 22:06:Geraldine Pedroza RN) Med Hx Psychiatric Disorders: No (10/24/2016 22:06:Geraldine Pedroza RN) Med Hx Hepatitis/Liver Disease: No (10/24/2016 22:06:Geraldine Pedroza RN) Med Hx Varicosities/Phlebitis: No (10/24/2016 22:06:Geraldine Pedroza RN) Med Hx Thyroid Dysfunction: Yes (10/24/2016 22:06:Prerna Day RN) Med Hx Trauma/Violence: No (10/24/2016 22:06:Geraldine Pedroza RN) Med Hx Blood Transfusion: No (10/24/2016 22:06:Geraldine Pedroza RN) Med Hx Pulmonary (Asthma,TB): No (10/24/2016 22:06:Geraldine Pedroza RN) Med Hx Breast: No (10/24/2016 22:06:Geraldine Pedroza RN) Med Hx POURER Surgery: No (10/24/2016 22:06:Geraldine Pedroza RN) Med Hx Hospitalization/Surgery: Yes (10/24/2016 22:06:Geraldine Pedroza RN) Med Hx Anesthetic Complications: No (10/24/2016 22:06:Geraldine Pedroza RN) Med Hx Abnormal Pap Smear: No (10/24/2016 22:06:Geraldine Pedroza RN) Other Medical Diseases: No (10/24/2016 22:06:Geraldine Pedroza RN) Med Hx Significant Family Hx: No (10/24/2016 22:06:Geraldine Pedroza RN) Details of Med/Surg Hx: On synthroid hypothyroidism, childbirth (10/24/2016 22:06:Geraldine Pedroza RN) INFECTIOUS HISTORY Inf Hx Gonorrhea: No (10/24/2016 22:06:Geraldine Pedroza RN) Inf Hx Chlamydia: No (10/24/2016 22:06:Geraldine Pedroza RN) Inf Hx Syphilis: No (10/24/2016 22:06:Geraldine Pedroza RN) Inf Hx HIV/AIDS: No (10/24/2016 22:06:Geraldine Pedroza RN) Inf Hx Human Papilloma Virus: No (10/24/2016 22:06:Geraldine Pedroza RN) Inf Hx Pt/Partner Genital Herpes: No (10/24/2016 22:06:Geraldine Pedroza RN) Inf Hx Tuberculosis/Exposure: No (10/24/2016 22:06:Geraldine Pedroza RN) Inf Hx Hepatitis B,C: No (10/24/2016 22:06:Geraldine Pedroza RN) Inf Hx Rash or Viral Illness: No (10/24/2016 22:06:Geraldine Pedroza RN) GENETIC HISTORY Gen Hx Age >=35 at PATRICIA: No (10/24/2016 22:06:Geraldine Pedroza RN) Gen Hx Thalassemia: No (10/24/2016 22:06:Geraldine Pderoza RN) Gen Hx Congenital Heart Defect: No (10/24/2016 22:06:Geraldine Pedroza RN) Gen Hx Neural Tube Defect: No (10/24/2016 22:06:Geraldine Pedroza RN) Gen Hx Down's Syndrome: No (10/24/2016 22:06:Geraldine Pedroza RN) Gen Hx Carmine-Sachs: No (10/24/2016 22:06:Geraldine Pedroza RN) Gen Hx Darlene: No (10/24/2016 22:06:Geraldine Pedroza RN) Gen Hx Familial Dysautonomia: No (10/24/2016 22:06:Geraldine Pedroza RN) Gen Hx Sickle Cell Disease/Trait: No (10/24/2016 22:06:Geraldine Pedroza RN) Gen Hx Hemophilia/Blood Disorder: No (10/24/2016 22:06:Geraldine Pedroza RN) Gen Hx Muscular Dystrophy: No (10/24/2016 22:06:Geraldine Pedroza RN) Gen Hx Cystic Fibrosis: No (10/24/2016 22:06:Geraldine Pedroza RN) Gen Hx Huntingtons Chorea: No (10/24/2016 22:06:Geraldine Pedroza RN) Gen Hx Mental Retardation/Autism: No (10/24/2016 22:06:Geraldine Pedroza RN) Gen Hx Tested for Fragile X: No (10/24/2016 22:06:Geraldine Pedroza RN) Gen Hx Other Inher/Chromosomal: No (10/24/2016 22:06:Geraldine Pedroza RN) Gen Hx Maternal Metabolic DO: No (10/24/2016 22:06:Geraldine Pedroza RN) Gen Hx Pt Father or FOB Defect: No (10/24/2016 22:06:Geraldine Pedroza RN) Gen Hx Other Genetic History: No (10/24/2016 22:06:Geraldine Pedroza RN) Gen Hx Drugs/Meds since LMP: No (10/24/2016 22:06:Geraldine Pedroza RN)
--- NOTE | 2016-10-29 06:23 | L&D Current Admission ---
Current Admit Datetime Report Generated by CPN: 10/29/2016 06:00 ADMISSION INFORMATION Current Admit Date/Time: 10/24/2016 22:44 (10/24/2016 22:44:Geraldine Pedroza RN) Reason for Admission: Onset of Labor (10/24/2016 22:44:Geraldine Pedroza RN) Chief Complaint: Contractions (10/24/2016 22:30:Geraldine Pedroza RN) EGA per Dates: 40.5 (10/24/2016 22:44:QS system process) Method of Arrival: Wheelchair (10/24/2016 22:44:Geraldine Pedroza RN) Reason for Induction: Not Applicable (10/24/2016 22:44:Geraldine Pedroza RN) Records Available: Yes (10/24/2016 22:44:Geraldine Pedroza RN) General Admission Information: Reviewed (10/24/2016 22:44:Geraldine Pedroza RN) BELONGINGS/ADVANCED DIRECTIVES Comments Regarding Disposition: see belongings consent form (10/24/2016 22:44:Geraldine Pedroza RN) Advance Direct for Healthcare: No, and Wants No Information (10/24/2016 22:44:Geraldine Pedroza RN) Durable Power of Production Broaching Machine Operator: No (10/24/2016 22:44:Geraldine Pedroza RN) Living Will: No (10/24/2016 22:44:Geraldine Pedroza RN) Organ Donor: Yes (10/24/2016 22:44:Geraldine Pedroza RN) Pt Rights Information Given: Yes (10/24/2016 22:44:Geraldine Pedroza RN) Pt Understands Pt Rights: Yes (10/24/2016 22:44:Geraldine Pedroza RN) LEARNING ASSESSMENT Knowledge Level: Understands L_D Process; Understands Care Activities; Understands Diagnosis (10/24/2016 22:44:Geraldine Pedroza RN) Barriers to Learning: None (10/24/2016 22:44:Geraldine Pedroza RN) Learning Readiness: Motivated (10/24/2016 22:44:Geraldine Pedroza RN) Learns Best By: 1 to 1 Instruction; Reading; Videos; Demonstration (10/24/2016 22:44:Geraldine Pedroza RN) Learning Needs: Labor and Delivery Process; Pain Management; Symptoms to Report; Treatment Plan; Medication; Diagnosis; Nutrition; Equipment; Care; Community Resources (10/24/2016 22:44:Geraldine Pedroza RN) DOMESTIC VIOLANCE SCREENING Dom Viol Threatened/Hurt: No (10/24/2016 22:44:Geraldine Pedroza RN) Hx of Abuse/Neglect past 2yrs: No (10/24/2016 22:44:Geraldine Pedroza RN) Feel Unsafe Going Home: No (10/24/2016 22:44:Geraldine Pedroza RN) Addt'l Observ Indicating Abuse: No (10/24/2016 22:44:Geraldine Pedroza RN) Reason Unable to Complete Screen: N/A, Screen Completed (10/24/2016 22:44:Geraldine Pedroza RN) Considered Personal Harm/Suicide: No (10/24/2016 22:44:Geraldine Pedroza RN) NUTRITIONAL/FUNCTIONAL SCREENING Problem with Appetite >5 Days: No (10/24/2016 22:44:Geraldine Pedroza RN) Chew/Swallow Difficulties: No (10/24/2016 22:44:Geraldine Pedroza RN) Inappropriate Wt Gain/Loss: No (10/24/2016 22:44:Geraldine Pedroza RN) Presence Skin Breakdown/Ulcer: No (10/24/2016 22:44:Geraldine Pedroza RN) Special Diet: No (10/24/2016 22:44:Geraldine Pedroza RN) Pt Requests Forensic Dna Analyst Visit: No (10/24/2016 22:44:Geraldine Pedroza RN) Hx of Any of the Following?: N/A (10/24/2016 22:44:Geraldine Pedroza RN) New Diagnosis of: N/A (10/24/2016 22:44:Geraldine Pedroza RN) Requires Assist w/Ambulation: No (10/24/2016 22:44:Geraldine Pedroza RN) Uses Assist Device to Ambulate: No (10/24/2016 22:44:Geraldine Pedroza RN) Pt Requires Help w/ADL's: No (10/24/2016 22:44:Geraldine Pedroza RN)
--- NOTE | 2016-10-30 06:24 | L&D General Admission ---
General Admit Datetime Report Generated by CPN: 10/30/2016 06:00 INFORMATION Patient Age: 21 (10/24/2016 22:00:QS system process) EDC: 10/19/2016 00:00 (10/24/2016 22:06:Prerna Day RN) : 3 (10/24/2016 22:06:Prerna Day RN) Para: 1 (10/24/2016 22:06:Prerna Day RN) Term: 1 (10/24/2016 22:06:Prerna Day RN) : 0 (10/24/2016 22:06:Prerna Day RN) Spontaneous Abortions: 1 (10/24/2016 22:06:Prerna Day RN) Induced Abortions: 0 (10/24/2016 22:06:Prerna Day RN) Livin (10/24/2016 22:06:Prerna Day RN) Baby, Number in Womb: 1 (10/24/2016 22:06:Prerna Day RN) CARE Primary Script Editor: [facility] (10/24/2016 22:06:Geraldine Pedroza, RN) Adequate Care: Yes (10/24/2016 22:06:Geraldine Pedroza, RN) Height (in): 58 (10/26/2016 09:47:QS system process) ALLERGIES Medication Allergy: No (10/24/2016 22:06:Geraldine Pedroza, RN) Medication Allergies: No Known Drug Allergies (10/24/2016) (10/24/2016 22:12:QS system process) Latex Allergy: No Latex Allergies (10/24/2016 22:06:Geraldine Pedroza, RN) Food Allergies: none (10/24/2016 22:06:Geraldine Pedroza, RN) Environmental Allergies: none (10/24/2016 22:06:Geraldine Pedroza, RN) COMMUNICATION Primary Language: Greek (10/24/2016 22:06:Geraldine Pedroza RN) Medical Tx Preferred Language: Greek (10/24/2016 22:06:Geraldine Pedroza RN) DEMOGRAPHICS Address: [address] [place] [id number] (10/24/2016 22:00:QS system process) Zipcode: [address] (10/24/2016 22:00:QS system process) Home (10/24/2016 22:00:QS system process) SSN: [id number] (10/24/2016 22:00:QS system process) Next of Kin Name: SANDY SEGURA (10/24/2016 22:00:QS system process) Next of Kin (10/24/2016 22:00:QS system process) Next of Kin Relationship: FA (10/24/2016 22:00:QS system process) Date of : 1995 (10/24/2016 22:00:QS system process) Marital Status: (10/24/2016 22:00:QS system process) Sex: Female (10/24/2016 22:00:QS system process) Race: (10/24/2016 22:00:QS system process) Ethnicity: Non- or (10/24/2016 22:00:QS system process) Latter Day: None (10/24/2016 22:00:QS system process) DRUG AND ALCOHOL USE Alcohol: No (10/24/2016 22:06:Geraldine Pedroza RN) Cigarettes: Former Smoker. [id number] (10/24/2016 22:06:Geraldine Pedroza, RN) Marijuana: No (10/24/2016 22:06:Geraldine Pedroza RN) Cocaine: No (10/24/2016 22:06:Geraldine Pedroza, RN) Other Illicit Drugs: No (10/24/2016 22:06:Geraldine Pedroza, RN) VACCINE HISTORY Influenza Vaccine: Yes (10/24/2016 22:06:Geraldine Pedroza RN) Pneumococcal Vaccine: No (10/24/2016 22:06:Geraldine Pedroza RN) Tetanus Vaccine: Yes (10/24/2016 22:06:Geraldine Pedroza RN) Tdap Vaccine: Yes (10/24/2016 22:06:Geraldine Pedroza RN) Hepatitis B Vaccine: Yes (10/24/2016 22:06:Geraldine Pedroza RN) Retail Support Specialist: [facility] (10/24/2016 22:06:Geraldine Pedroza RN) Feeding Preference: Breast (10/24/2016 22:06:Geraldine Pedroza RN) Benefit of Breast Feed Discussed: Yes (10/24/2016 22:06:Geraldine Pedroza RN) Circumcision: N/A (10/24/2016 22:06:Geraldine Pedroza RN) Classes Attended: No (10/24/2016 22:06:Geraldine Pedroza RN) Tubal Ligation: No (10/24/2016 22:06:Geraldine Pedroza RN) Tubal Authorization Signed: N/A (10/24/2016 22:06:Geraldine Pedroza RN) Consent: N/A (10/24/2016 22:06:Geraldine Pedroza RN) Consent Signed: N/A (10/24/2016 22:06:Geraldine Pedroza RN) Pain Management Plans: Epidural (10/24/2016 22:06:Geraldine Pedroza RN) Plans for Labor and Delivery: None (10/24/2016 22:06:Geraldine Pedroza RN) Support Person: Declan Bond (10/24/2016 22:06:Geraldine Pedroza RN) Support Person Relationship: (10/24/2016 22:06:Geraldine Pedroza RN) Cultural/Spritual Practice: No (10/24/2016 22:06:Geraldine Pedroza RN) Spir/Cult Dietary Needs: No (10/24/2016 22:06:Geraldine Pedroza RN) LIVING SITUATION/DISCHARGE PLAN Living Arrangements: House (10/24/2016 22:06:Geraldine Pedroza RN) Adequate Access to:: Electric; Heat; Refrigeration; Plumbing/Running water; Phone; Transportation (10/24/2016 22:06:Geraldine Pedroza RN) WIC Program: Yes (10/24/2016 22:06:Geraldine Pedroza RN) Discharge Housekeeping Assistant Person: Declan (10/24/2016 22:06:Geraldine Pedroza RN) Person to Help after Discharge: Declan (10/24/2016 22:06:Gerladine Pedroza RN) Currently Using Commun Resources: No (10/24/2016 22:06:Geraldine Pedroza RN) Outside Agency/Fitting Room Associate: No (10/24/2016 22:06:Geraldine Pedroza RN) Car Seat for Discharge: Yes (10/24/2016 22:06:Geraldine Pedroza RN) Adoption Requested: No (10/24/2016 22:06:Geraldine Pedroza RN) Pt Contact w/infant Post : N/A (10/24/2016 22:06:Geraldine Pedroza RN) LABS Blood Type: AB Positive (10/24/2016 22:06:Prerna Day RN) Antibody Screen: negative (10/24/2016 22:06:Prerna Day RN) Hemoglobin: 12.9 (10/25/2016 06:51:QS system process) Hematocrit: 38.2 (10/25/2016 06:51:QS system process) MCV: 91 (10/25/2016 06:51:QS system process) Group Beta Strep: negative (10/24/2016 22:06:Prerna Day RN) Gonorrhea: Negative (10/24/2016 22:06:Prerna Day RN) Chlamydia: Negative (10/24/2016 22:06:Prerna Day RN) RPR/VDRL: Nonreactive (10/24/2016 22:06:Prerna Day RN) HIV Results: non-reactive (10/24/2016 22:06:Prerna Day RN) Hepatitis B: Negative (10/24/2016 22:06:Prerna Day RN) Rubella: Immune (10/24/2016 22:06:Prerna Day RN) OB/PREVIOUS HISTORY Previous Procedures: Ultrasound; NST (10/24/2016 22:06:Geraldine Pedroza RN) Current Procedures: Ultrasound; NST (10/24/2016 22:06:Geraldine Pedroza RN) History of Previous : No (10/24/2016 22:06:Geraldine Pedroza RN) History of Gestational Diabetes: No (10/24/2016 22:06:Geraldine Pedroza RN) History of PIH: No (10/24/2016 22:06:Geraldine Pedroza RN) History of Incompetent Cervix: No (10/24/2016 22:06:Geraldine Pedroza RN) History of Placenta Previa/Abrup: No (10/24/2016 22:06:Geraldine Pedroza RN) History of Macrosomia: No (10/24/2016 22:06:Geraldine Pedroza RN) History of IUGR: No (10/24/2016 22:06:Geraldine Pedroza RN) History of Hemorrhage: No (10/24/2016 22:06:Geraldine Pedroza RN) History of Loss/Stillborn: No (10/24/2016 22:06:Geraldine Pedroza RN) History of : No (10/24/2016 22:06:Geraldine Pedroza RN) History of D (Rh) Sensitization: No (10/24/2016 22:06:Geraldine Pedroza RN) History Recurrent Loss/Stillborn: No (10/24/2016 22:06:Geraldine Pedroza RN) History Depression/PP Depression: No (10/24/2016 22:06:Geraldine Pedroza RN) History of Uterine Anomaly/SYL: No (10/24/2016 22:06:Geraldine Pedroza RN) History of Infertility: No (10/24/2016 22:06:Geraldine Pedroza RN) History of ART Treatment: No (10/24/2016 22:06:Geraldine Pedroza RN) History of SYL: No (10/24/2016 22:06:Geraldine Pedroza RN) Comments Obstetrical History: G1: SAB 2013 G2: Female 2015 7 pounds 6 ounces G3: Current (10/24/2016 22:06:Geraldine Pedroza RN) MEDICAL HISTORY Med Hx Diabetes: No (10/24/2016 22:06:Geraldine Pedroza RN) Med Hx Hypertension: No (10/24/2016 22:06:Geraldine Pedroza RN) Med Hx Heart Disease: No (10/24/2016 22:06:Geraldine Pedroza RN) Med Hx Autoimmune Disorder: No (10/24/2016 22:06:Geraldine Pedroza RN) Med Hx Kidney Disease/UTI: No (10/24/2016 22:06:Geraldine Pedroza RN) Med Hx Neurologic/Epilepsy: No (10/24/2016 22:06:Geraldine Pedroza RN) Med Hx Psychiatric Disorders: No (10/24/2016 22:06:Geraldine Pedroza RN) Med Hx Hepatitis/Liver Disease: No (10/24/2016 22:06:Geraldine Pedroza RN) Med Hx Varicosities/Phlebitis: No (10/24/2016 22:06:Geraldine Pedroza RN) Med Hx Thyroid Dysfunction: Yes (10/24/2016 22:06:Prerna Day RN) Med Hx Trauma/Violence: No (10/24/2016 22:06:Geraldine Pedroza RN) Med Hx Blood Transfusion: No (10/24/2016 22:06:Geraldine Pedroza RN) Med Hx Pulmonary (Asthma,TB): No (10/24/2016 22:06:Geraldine Pedroza RN) Med Hx Breast: No (10/24/2016 22:06:Geraldine Pedroza RN) Med Hx CUSTOMS DIRECTOR Surgery: No (10/24/2016 22:06:Geraldine Pedroza RN) Med Hx Hospitalization/Surgery: Yes (10/24/2016 22:06:Geraldine Pedroza RN) Med Hx Anesthetic Complications: No (10/24/2016 22:06:Geraldine Pedroza RN) Med Hx Abnormal Pap Smear: No (10/24/2016 22:06:Geraldine Pedroza RN) Other Medical Diseases: No (10/24/2016 22:06:Geraldine Pedroza RN) Med Hx Significant Family Hx: No (10/24/2016 22:06:Geraldine Pedroza RN) Details of Med/Surg Hx: On synthroid hypothyroidism, childbirth (10/24/2016 22:06:Geraldine Pedroza RN) INFECTIOUS HISTORY Inf Hx Gonorrhea: No (10/24/2016 22:06:Geraldine Pedroza RN) Inf Hx Chlamydia: No (10/24/2016 22:06:Geraldine Pedroza RN) Inf Hx Syphilis: No (10/24/2016 22:06:Geraldine Pedroza RN) Inf Hx HIV/AIDS: No (10/24/2016 22:06:Geraldine Pedroza RN) Inf Hx Human Papilloma Virus: No (10/24/2016 22:06:Geraldine Pedroza RN) Inf Hx Pt/Partner Genital Herpes: No (10/24/2016 22:06:Geraldine Pedroza RN) Inf Hx Tuberculosis/Exposure: No (10/24/2016 22:06:Geraldine Pedroza RN) Inf Hx Hepatitis B,C: No (10/24/2016 22:06:Geraldine Pedroza RN) Inf Hx Rash or Viral Illness: No (10/24/2016 22:06:Geraldine Pedroza RN) GENETIC HISTORY Gen Hx Age >=35 at PATRICIA: No (10/24/2016 22:06:Geraldine Pedroza RN) Gen Hx Thalassemia: No (10/24/2016 22:06:Geraldine Pedroza RN) Gen Hx Congenital Heart Defect: No (10/24/2016 22:06:Geraldine Pedroza RN) Gen Hx Neural Tube Defect: No (10/24/2016 22:06:Geraldine Pedroza RN) Gen Hx Down's Syndrome: No (10/24/2016 22:06:Geraldine Pedroza RN) Gen Hx Carmine-Sachs: No (10/24/2016 22:06:Geraldine Pedroza RN) Gen Hx Darlene: No (10/24/2016 22:06:Geraldine Pedroza RN) Gen Hx Familial Dysautonomia: No (10/24/2016 22:06:Geraldine Pedroza RN) Gen Hx Sickle Cell Disease/Trait: No (10/24/2016 22:06:Geraldine Pedroza RN) Gen Hx Hemophilia/Blood Disorder: No (10/24/2016 22:06:Geraldine Pedroza RN) Gen Hx Muscular Dystrophy: No (10/24/2016 22:06:Geraldine Pedroza RN) Gen Hx Cystic Fibrosis: No (10/24/2016 22:06:Geraldine Pedroza RN) Gen Hx Huntingtons Chorea: No (10/24/2016 22:06:Geraldine Pedroza RN) Gen Hx Mental Retardation/Autism: No (10/24/2016 22:06:Geraldine Pedroza RN) Gen Hx Tested for Fragile X: No (10/24/2016 22:06:Geraldine Pedroza RN) Gen Hx Other Inher/Chromosomal: No (10/24/2016 22:06:Geraldine Pedroza RN) Gen Hx Maternal Metabolic DO: No (10/24/2016 22:06:Geraldine Pedroza RN) Gen Hx Pt Father or FOB Defect: No (10/24/2016 22:06:Geraldine Pedroza RN) Gen Hx Other Genetic History: No (10/24/2016 22:06:Geraldine Pedroza RN) Gen Hx Drugs/Meds since LMP: No (10/24/2016 22:06:Geraldine Pedroza RN)
--- NOTE | 2016-10-31 06:25 | L&D Current Admission ---
Current Admit Datetime Report Generated by CPN: 10/31/2016 06:00 ADMISSION INFORMATION Current Admit Date/Time: 10/24/2016 22:44 (10/24/2016 22:44:Geraldine Pedroza RN) Reason for Admission: Onset of Labor (10/24/2016 22:44:Geraldine Pedroza RN) Chief Complaint: Contractions (10/24/2016 22:30:Geraldine Pedroza RN) EGA per Dates: 40.5 (10/24/2016 22:44:QS system process) Method of Arrival: Wheelchair (10/24/2016 22:44:Geraldine Pedroza RN) Reason for Induction: Not Applicable (10/24/2016 22:44:Geraldine Pedroza RN) Records Available: Yes (10/24/2016 22:44:Geraldine Pedroza RN) General Admission Information: Reviewed (10/24/2016 22:44:Geraldine Pedroza RN) BELONGINGS/ADVANCED DIRECTIVES Comments Regarding Disposition: see belongings consent form (10/24/2016 22:44:Geraldine Pedroza RN) Advance Direct for Healthcare: No, and Wants No Information (10/24/2016 22:44:Geraldine Pedroza RN) Durable Power of Cloth Checker: No (10/24/2016 22:44:Geraldine Pedroza RN) Living Will: No (10/24/2016 22:44:Geraldine Pedroza RN) Organ Donor: Yes (10/24/2016 22:44:Geraldine Pedroza RN) Pt Rights Information Given: Yes (10/24/2016 22:44:Geraldine Pedroza RN) Pt Understands Pt Rights: Yes (10/24/2016 22:44:Geraldine Pedroza RN) LEARNING ASSESSMENT Knowledge Level: Understands L_D Process; Understands Care Activities; Understands Diagnosis (10/24/2016 22:44:Geraldine Pedroza RN) Barriers to Learning: None (10/24/2016 22:44:Geraldine Pedroza RN) Learning Readiness: Motivated (10/24/2016 22:44:Geraldine Pedroza RN) Learns Best By: 1 to 1 Instruction; Reading; Videos; Demonstration (10/24/2016 22:44:Geraldine Pedroza RN) Learning Needs: Labor and Delivery Process; Pain Management; Symptoms to Report; Treatment Plan; Medication; Diagnosis; Nutrition; Equipment; Care; Community Resources (10/24/2016 22:44:Geraldine Pedroza RN) DOMESTIC VIOLANCE SCREENING Dom Viol Threatened/Hurt: No (10/24/2016 22:44:Geraldine Pedroza RN) Hx of Abuse/Neglect past 2yrs: No (10/24/2016 22:44:Geraldine Pedroza RN) Feel Unsafe Going Home: No (10/24/2016 22:44:Geraldine Pedroza RN) Addt'l Observ Indicating Abuse: No (10/24/2016 22:44:Geraldine Pedroza RN) Reason Unable to Complete Screen: N/A, Screen Completed (10/24/2016 22:44:Geraldine Pedroza RN) Considered Personal Harm/Suicide: No (10/24/2016 22:44:Geraldine Pedroza RN) NUTRITIONAL/FUNCTIONAL SCREENING Problem with Appetite >5 Days: No (10/24/2016 22:44:Geraldine Pedroza RN) Chew/Swallow Difficulties: No (10/24/2016 22:44:Geraldine Pedroza RN) Inappropriate Wt Gain/Loss: No (10/24/2016 22:44:Geraldine Pedroza RN) Presence Skin Breakdown/Ulcer: No (10/24/2016 22:44:Geraldine Pedroza RN) Special Diet: No (10/24/2016 22:44:Geraldine Pedroza RN) Pt Requests Canvas Baster Jumpbasting Visit: No (10/24/2016 22:44:Geraldine Pedroza RN) Hx of Any of the Following?: N/A (10/24/2016 22:44:Geraldine Pedroza RN) New Diagnosis of: N/A (10/24/2016 22:44:Geraldine Pedroza RN) Requires Assist w/Ambulation: No (10/24/2016 22:44:Geraldine Pedroza RN) Uses Assist Device to Ambulate: No (10/24/2016 22:44:Geraldine Pedroza RN) Pt Requires Help w/ADL's: No (10/24/2016 22:44:Geraldine Pedroza RN)
--- NOTE | 2016-10-31 06:25 | L&D General Admission ---
General Admit Datetime Report Generated by CPN: 10/31/2016 06:00 INFORMATION Patient Age: 21 (10/24/2016 22:00:QS system process) EDC: 10/19/2016 00:00 (10/24/2016 22:06:Prerna Day RN) : 3 (10/24/2016 22:06:Prerna Day RN) Para: 1 (10/24/2016 22:06:Prerna Day RN) Term: 1 (10/24/2016 22:06:Prerna Day RN) : 0 (10/24/2016 22:06:Prerna Day RN) Spontaneous Abortions: 1 (10/24/2016 22:06:Prerna Day RN) Induced Abortions: 0 (10/24/2016 22:06:Prerna Day RN) Livin (10/24/2016 22:06:Prerna Day RN) Baby, Number in Womb: 1 (10/24/2016 22:06:Prerna Day RN) CARE Primary Pulp Roller: [facility] (10/24/2016 22:06:Geraldine Pedroza, RN) Adequate Care: Yes (10/24/2016 22:06:Geraldine Pedroza, RN) Height (in): 58 (10/26/2016 09:47:QS system process) ALLERGIES Medication Allergy: No (10/24/2016 22:06:Geraldine Pedroza, RN) Medication Allergies: No Known Drug Allergies (10/24/2016) (10/24/2016 22:12:QS system process) Latex Allergy: No Latex Allergies (10/24/2016 22:06:Geraldine Pedroza, RN) Food Allergies: none (10/24/2016 22:06:Geraldine Pedroza, RN) Environmental Allergies: none (10/24/2016 22:06:Geraldine Pedroza, RN) COMMUNICATION Primary Language: Frisian (10/24/2016 22:06:Geraldine Pedroza RN) Medical Tx Preferred Language: Frisian (10/24/2016 22:06:Geraldine Pedroza RN) DEMOGRAPHICS Address: [address] [place] [id number] (10/24/2016 22:00:QS system process) Zipcode: [address] (10/24/2016 22:00:QS system process) Home (10/24/2016 22:00:QS system process) SSN: [id number] (10/24/2016 22:00:QS system process) Next of Kin Name: SANDY SEGURA (10/24/2016 22:00:QS system process) Next of Kin (10/24/2016 22:00:QS system process) Next of Kin Relationship: FA (10/24/2016 22:00:QS system process) Date of : 1995 (10/24/2016 22:00:QS system process) Marital Status: (10/24/2016 22:00:QS system process) Sex: Female (10/24/2016 22:00:QS system process) Race: (10/24/2016 22:00:QS system process) Ethnicity: Non- or (10/24/2016 22:00:QS system process) Mosque: None (10/24/2016 22:00:QS system process) DRUG AND ALCOHOL USE Alcohol: No (10/24/2016 22:06:Geraldine Pedroza RN) Cigarettes: Former Smoker. [id number] (10/24/2016 22:06:Geraldine Pedroza, RN) Marijuana: No (10/24/2016 22:06:Geraldine Pedroza RN) Cocaine: No (10/24/2016 22:06:Geraldine Pedroza, RN) Other Illicit Drugs: No (10/24/2016 22:06:Geraldine Pedroza, RN) VACCINE HISTORY Influenza Vaccine: Yes (10/24/2016 22:06:Geraldine Pedroza RN) Pneumococcal Vaccine: No (10/24/2016 22:06:Geraldine Pedroza RN) Tetanus Vaccine: Yes (10/24/2016 22:06:Geraldine Pedroza RN) Tdap Vaccine: Yes (10/24/2016 22:06:Geraldine Pedroza RN) Hepatitis B Vaccine: Yes (10/24/2016 22:06:Geraldine Pedroza RN) Labor Trainer: [facility] (10/24/2016 22:06:Geraldine Pedroza RN) Feeding Preference: Breast (10/24/2016 22:06:Geraldine Pedroza RN) Benefit of Breast Feed Discussed: Yes (10/24/2016 22:06:Geraldine Perdoza RN) Circumcision: N/A (10/24/2016 22:06:Geraldine Pedroza RN) Classes Attended: No (10/24/2016 22:06:Geraldine Pedroza RN) Tubal Ligation: No (10/24/2016 22:06:Geraldine Pedroza RN) Tubal Authorization Signed: N/A (10/24/2016 22:06:Geraldine Pedroza RN) Consent: N/A (10/24/2016 22:06:Geraldine Pedroza RN) Consent Signed: N/A (10/24/2016 22:06:Geraldine Pedroza RN) Pain Management Plans: Epidural (10/24/2016 22:06:Geraldine Pedroza RN) Plans for Labor and Delivery: None (10/24/2016 22:06:Geraldine Pedroza RN) Support Person: Declan Bond (10/24/2016 22:06:Geraldine Pedroza RN) Support Person Relationship: (10/24/2016 22:06:Geraldine Pedroza RN) Cultural/Spritual Practice: No (10/24/2016 22:06:Geraldine Pedroza RN) Spir/Cult Dietary Needs: No (10/24/2016 22:06:Geraldine Pedroza RN) LIVING SITUATION/DISCHARGE PLAN Living Arrangements: House (10/24/2016 22:06:Geraldine Pedroza RN) Adequate Access to:: Electric; Heat; Refrigeration; Plumbing/Running water; Phone; Transportation (10/24/2016 22:06:Geraldine Pedroza RN) WIC Program: Yes (10/24/2016 22:06:Geraldine Pedroza RN) Discharge Chicken Tender Person: Declan (10/24/2016 22:06:Geraldine Pedroza RN) Person to Help after Discharge: Declan (10/24/2016 22:06:Geraldine Pedroza RN) Currently Using Commun Resources: No (10/24/2016 22:06:Geraldine Pedroza RN) Outside Agency/Driver Education Instructor: No (10/24/2016 22:06:Geraldine Pedroza RN) Car Seat for Discharge: Yes (10/24/2016 22:06:Geraldine Pedroza RN) Adoption Requested: No (10/24/2016 22:06:Geraldine Pedroza RN) Pt Contact w/infant Post : N/A (10/24/2016 22:06:Geraldine Pedroza RN) LABS Blood Type: AB Positive (10/24/2016 22:06:Prerna Day RN) Antibody Screen: negative (10/24/2016 22:06:Prerna Day RN) Hemoglobin: 12.9 (10/25/2016 06:51:QS system process) Hematocrit: 38.2 (10/25/2016 06:51:QS system process) MCV: 91 (10/25/2016 06:51:QS system process) Group Beta Strep: negative (10/24/2016 22:06:Prerna Day RN) Gonorrhea: Negative (10/24/2016 22:06:Prerna Day RN) Chlamydia: Negative (10/24/2016 22:06:Prerna Day RN) RPR/VDRL: Nonreactive (10/24/2016 22:06:Prerna Day RN) HIV Results: non-reactive (10/24/2016 22:06:Prerna Day RN) Hepatitis B: Negative (10/24/2016 22:06:Prerna Day RN) Rubella: Immune (10/24/2016 22:06:Prerna Day RN) OB/PREVIOUS HISTORY Previous Procedures: Ultrasound; NST (10/24/2016 22:06:Geraldine Pedroza RN) Current Procedures: Ultrasound; NST (10/24/2016 22:06:Geraldine Pedroza RN) History of Previous : No (10/24/2016 22:06:Geraldine Pedroza RN) History of Gestational Diabetes: No (10/24/2016 22:06:Geraldine Pedroza RN) History of PIH: No (10/24/2016 22:06:Geraldine Pedroza RN) History of Incompetent Cervix: No (10/24/2016 22:06:Geraldine Pedroza RN) History of Placenta Previa/Abrup: No (10/24/2016 22:06:Geraldine Pedroza RN) History of Macrosomia: No (10/24/2016 22:06:Geraldine Perdoza RN) History of IUGR: No (10/24/2016 22:06:Geraldine Pedroza RN) History of Hemorrhage: No (10/24/2016 22:06:Geraldine Pedroza RN) History of Loss/Stillborn: No (10/24/2016 22:06:Geraldine Pedroza RN) History of : No (10/24/2016 22:06:Geraldine Pedroza RN) History of D (Rh) Sensitization: No (10/24/2016 22:06:Geraldine Pedroza RN) History Recurrent Loss/Stillborn: No (10/24/2016 22:06:Geraldine Pedroza RN) History Depression/PP Depression: No (10/24/2016 22:06:Geraldine Pedroza RN) History of Uterine Anomaly/SYL: No (10/24/2016 22:06:Geraldine Pedroza RN) History of Infertility: No (10/24/2016 22:06:Geraldine Pedroza RN) History of ART Treatment: No (10/24/2016 22:06:Geraldine Pedroza RN) History of SYL: No (10/24/2016 22:06:Geraldine Pedroza RN) Comments Obstetrical History: G1: SAB 2013 G2: Female 2015 7 pounds 6 ounces G3: Current (10/24/2016 22:06:Geraldine Pedroza RN) MEDICAL HISTORY Med Hx Diabetes: No (10/24/2016 22:06:Geraldine Pedroza RN) Med Hx Hypertension: No (10/24/2016 22:06:Geraldine Pedroza RN) Med Hx Heart Disease: No (10/24/2016 22:06:Geraldine Pedroza RN) Med Hx Autoimmune Disorder: No (10/24/2016 22:06:Geraldine Pedroza RN) Med Hx Kidney Disease/UTI: No (10/24/2016 22:06:Geraldine Pedroza RN) Med Hx Neurologic/Epilepsy: No (10/24/2016 22:06:Geraldine Pedroza RN) Med Hx Psychiatric Disorders: No (10/24/2016 22:06:Geraldine Pedroza RN) Med Hx Hepatitis/Liver Disease: No (10/24/2016 22:06:Geraldine Pedroza RN) Med Hx Varicosities/Phlebitis: No (10/24/2016 22:06:Geraldine Pedroza RN) Med Hx Thyroid Dysfunction: Yes (10/24/2016 22:06:Prerna Day RN) Med Hx Trauma/Violence: No (10/24/2016 22:06:Geraldine Pedroza RN) Med Hx Blood Transfusion: No (10/24/2016 22:06:Geraldine Pedroza RN) Med Hx Pulmonary (Asthma,TB): No (10/24/2016 22:06:Geraldine Pedroza RN) Med Hx Breast: No (10/24/2016 22:06:Geraldine Pedroza RN) Med Hx DETECTIVE CHIEF Surgery: No (10/24/2016 22:06:Geraldine Pedroza RN) Med Hx Hospitalization/Surgery: Yes (10/24/2016 22:06:Geraldine Pedroza RN) Med Hx Anesthetic Complications: No (10/24/2016 22:06:Geraldine Pedroza RN) Med Hx Abnormal Pap Smear: No (10/24/2016 22:06:Geraldine Pedroza RN) Other Medical Diseases: No (10/24/2016 22:06:Geraldine Pedroza RN) Med Hx Significant Family Hx: No (10/24/2016 22:06:Geraldine Pedroza RN) Details of Med/Surg Hx: On synthroid hypothyroidism, childbirth (10/24/2016 22:06:Geraldine Pedroza RN) INFECTIOUS HISTORY Inf Hx Gonorrhea: No (10/24/2016 22:06:Geraldine Pedroza RN) Inf Hx Chlamydia: No (10/24/2016 22:06:Geraldine Pedroza RN) Inf Hx Syphilis: No (10/24/2016 22:06:Geraldine Pedroza RN) Inf Hx HIV/AIDS: No (10/24/2016 22:06:Geraldine Pedroza RN) Inf Hx Human Papilloma Virus: No (10/24/2016 22:06:Geraldine Pedroza RN) Inf Hx Pt/Partner Genital Herpes: No (10/24/2016 22:06:Geraldine Pedroza RN) Inf Hx Tuberculosis/Exposure: No (10/24/2016 22:06:Geraldine Pedroza RN) Inf Hx Hepatitis B,C: No (10/24/2016 22:06:Geraldine Pedroza RN) Inf Hx Rash or Viral Illness: No (10/24/2016 22:06:Geraldine Pedroza RN) GENETIC HISTORY Gen Hx Age >=35 at PATRICIA: No (10/24/2016 22:06:Geraldine Pedroza RN) Gen Hx Thalassemia: No (10/24/2016 22:06:Geraldine Pedroza RN) Gen Hx Congenital Heart Defect: No (10/24/2016 22:06:Geraldine Pedroza RN) Gen Hx Neural Tube Defect: No (10/24/2016 22:06:Geraldine Pedroza RN) Gen Hx Down's Syndrome: No (10/24/2016 22:06:Geraldine Pedroza RN) Gen Hx Carmine-Sachs: No (10/24/2016 22:06:Geraldine Pedroza RN) Gen Hx Darlene: No (10/24/2016 22:06:Geraldine Pedroza RN) Gen Hx Familial Dysautonomia: No (10/24/2016 22:06:Geraldine Pedroza RN) Gen Hx Sickle Cell Disease/Trait: No (10/24/2016 22:06:Geraldine Pedroza RN) Gen Hx Hemophilia/Blood Disorder: No (10/24/2016 22:06:Geraldine Pedroza RN) Gen Hx Muscular Dystrophy: No (10/24/2016 22:06:Geraldine Pedroza RN) Gen Hx Cystic Fibrosis: No (10/24/2016 22:06:Geraldine Pedroza RN) Gen Hx Huntingtons Chorea: No (10/24/2016 22:06:Geraldine Pedroza RN) Gen Hx Mental Retardation/Autism: No (10/24/2016 22:06:Geraldine Pedroza RN) Gen Hx Tested for Fragile X: No (10/24/2016 22:06:Geraldine Pedroza RN) Gen Hx Other Inher/Chromosomal: No (10/24/2016 22:06:Geraldine Pedroza RN) Gen Hx Maternal Metabolic DO: No (10/24/2016 22:06:Geraldine Pedroza RN) Gen Hx Pt Father or FOB Defect: No (10/24/2016 22:06:Geraldine Pedroza RN) Gen Hx Other Genetic History: No (10/24/2016 22:06:Geraldine Pedroza RN) Gen Hx Drugs/Meds since LMP: No (10/24/2016 22:06:Geraldine Pedroza RN)
== END 2016-10-26 13:15 | disposition home or self-care (01) | DRG 775 ==
LOC: LC 22:00 → LR 22:28 → 2S 10-25 01:03
PROVIDERS: ADMIT Student in an Organized Health Care Education/Training Program; ATTEND Student in an Organized Health Care Education/Training Program
PROC: 10E0XZZ Delivery of Products of Conception, External Approach (ICD-10-PCS; principal; 2016-10-24)
PROC: 0HQ9XZZ Repair Perineum Skin, External Approach (ICD-10-PCS; 2016-10-24)
PROC: 4A1HXCZ Monitoring of Products of Conception, Cardiac Rate, External Approach (ICD-10-PCS; 2016-10-24)
DX: O77.0 Labor and delivery complicated by meconium in amniotic fluid (principal); O69.1XX0 Labor and delivery complicated by cord around neck, with compression, not applicable or unspecified; O99.284 Endocrine, nutritional and metabolic diseases complicating childbirth; O70.0 First degree perineal laceration during delivery; E03.9 Hypothyroidism, unspecified; O99.62 Diseases of the digestive system complicating childbirth; K21.9 Gastro-esophageal reflux disease without esophagitis; O62.3 Precipitate labor; O62.2 Other uterine inertia; Z3A.40 40 weeks gestation of pregnancy; Z37.0 Single live birth; Z79.899 Other long term (current) drug therapy
CPT/HCPCS: 36415; 80307; 81005; 85025; 85027; 86592; 86850; 86900; 86901; G0480; J2370; J2590; J3010; J3490